=== PATIENT | female | born 1955 | race Caucasian/White ===

== ENCOUNTER 2021-06-10 00:20 | Inpatient (IN) | payer OTHER, BC, SELFPAY ==
[~2021-06-10] VITALS: Ht 182.9 cm; Wt 102.1 kg
[2021-06-10 00:29] VITALS: BP_SYST 148
[2021-06-10] MEDS ORDERED: HYDROmorphone 2 MG/ML VIAL IVP PRN (01:00)
[2021-06-10] MEDS ORDERED: ONDANSETRON HCL 4 MG/2 ML VIAL IVP PRN (01:00)
[2021-06-10] MEDS ORDERED: VANCOMYCIN HCL 1,000 MG in NS 250 ML IV SCH (01:00)
[2021-06-10] MEDS ORDERED: DONE10TA44 PO (01:05)
[2021-06-10] MEDS ORDERED: [UNRECOGNIZED DRUG - CODE] MM (01:05)
[2021-06-10] MEDS ORDERED: CILO100T PO (01:05)
[2021-06-10] MEDS ORDERED: OSCD500 PO (01:05)
[2021-06-10] MEDS ORDERED: ALLO100T PO (01:05)
[2021-06-10] MEDS ORDERED: DICY10SO PO (01:05)
[2021-06-10] MEDS ORDERED: CAT3PAT TD (01:05)
[2021-06-10] MEDS ORDERED: LORA-258 PO (01:05)
[2021-06-10] MEDS ORDERED: LORA-259 PO (01:05)
[2021-06-10] MEDS ORDERED: BISA-79 PO (01:05)
[2021-06-10] MEDS ORDERED: DOCU-144 PO (01:05)
[2021-06-10] MEDS ORDERED: BEN50 PO (01:05)
[2021-06-10] MEDS ORDERED: CRAN450T9 PO (01:05)
[2021-06-10] MEDS ORDERED: HYDR2TAB4 PO (01:05)
[2021-06-10] MEDS ORDERED: [UNRECOGNIZED DRUG - OTHER] (01:05)
[2021-06-10] MEDS ORDERED: FLUO120C4 TP (01:30)
[2021-06-10] MEDS ORDERED: EZET1TAB22 PO (01:30)
[2021-06-10] MEDS ORDERED: NORT50CA5 PO (01:39)
[2021-06-10] MEDS ORDERED: LOPE2CAP PO (01:39)
[2021-06-10] MEDS ORDERED: SSREG SUBCUT (01:39)
[2021-06-10] MEDS ORDERED: MELA10TA PO (01:39)
[2021-06-10] MEDS ORDERED: ASM110 INH (01:39)
[2021-06-10] MEDS ORDERED: LISI10TA29 PO (01:39)
[2021-06-10] MEDS ORDERED: NAFT45CR2 TP (01:39)
[2021-06-10] MEDS ORDERED: PREG75CA PO (01:39)
[2021-06-10] MEDS ORDERED: INSU100V9 SQ (01:39)
[2021-06-10] MEDS ORDERED: PHEN100O4 PO (01:39)
[2021-06-10] MEDS ORDERED: HYDR12.55 (01:39)
[2021-06-10] MEDS ORDERED: LEVO125T8 PO (01:39)
[2021-06-10] MEDS ORDERED: PRO20 PO (01:48)
[2021-06-10] MEDS ORDERED: CLOP75TA32 PO (01:48)
[2021-06-10] MEDS ORDERED: POTA20TA83 PO (01:48)
[2021-06-10] MEDS ORDERED: ALBMDI INH (01:48)
[2021-06-10] MEDS ORDERED: TRAZ300T2 PO (01:48)
[2021-06-10] MEDS ORDERED: LORazepam 2 MG/ML VIAL IM ONE ×3 (02:00→06:45)
[2021-06-10] MEDS ORDERED: MORPHINE 4 MG INJ. 4 MG/ML VIAL IM ONE ×3 (02:00→06:45)
[2021-06-10] MEDS ORDERED: LIDOCAINE 1%, 20 ML MDV 20 ML ONE ×2 (02:52→06:03)
[2021-06-10] MEDS ORDERED: MORPHINE 4 MG INJ. 4 MG/ML VIAL ONE (03:06)
[2021-06-10] MEDS ORDERED: LORazepam 2 MG/ML VIAL ONE (03:07)
[2021-06-10] MEDS ORDERED: HYDROmorphone 2 MG/ML VIAL IM PRN (08:30)
[2021-06-10 10:25] VITALS: BP_SYST 146
[2021-06-10 11:36] LABS: BASOPHILS # (AUTO) 0.1 K/uL (0.0-0.2); BASOPHILS % (AUTO) 1.1 % (0.0-2.0); EOSINOPHILS # (AUTO) 0.1 K/uL (0.0-0.4); EOSINOPHILS % (AUTO) 1.2 % (0.0-4.0); HEMATOCRIT 37.1 % (36-48); HEMOGLOBIN 12.8 g/dL (12.0-16.0); LYMPHOCYTES # (AUTO) 1.9 K/uL (1.0-5.5); LYMPHOCYTES % (AUTO) 17.5 % (20.5-51.5); MEAN CORPUSCULAR HEMOGLOBIN 33 pg (27-31); MEAN CORPUSCULAR HGB CONC 35 % (32-36); MEAN CORPUSCULAR VOLUME 96 fL (79.0-98.0); MONOCYTES # (AUTO) 0.4 K/uL (0.0-1.0); MONOCYTES % (AUTO) 3.6 % (1.7-9.3); NEUTROPHILS # (AUTO) 8.4 K/uL (1.8-7.7); NEUTROPHILS % (AUTO) 76.6 % (40.0-70.0); PLATELET COUNT (AUTO) 209 K/uL (130-430); RED BLOOD CELL COUNT(AUTO) 3.85 MIL/uL (4.2-6.2); RED CELL DISTRIBUTION WIDTH 13.6 % (9.0-15.0)
[2021-06-10 12:16] LABS: CALCIUM 9.1 mg/dL (8.4-11.0); CREATININE 0.63 mg/dL (0.55-1.30); POTASSIUM 4.4 mmol/L (3.5-5.1)
[2021-06-10 12:21] LABS: ALBUMIN 3.5 g/dL (3.4-4.8); TOTAL BILIRUBIN 0.5 mg/dL (0.0-1.0)
[2021-06-10 12:38] VITALS: BP_SYST 153
[2021-06-10] MEDS: HYDROmorphone 2 MG/ML VIAL IM PRN ×4 (12:45→21:42)
[2021-06-10] MEDS: ONDANSETRON 4 MG ODT TAB PO PRN (15:39)
[2021-06-10] MEDS ORDERED: HEPARIN SODIUM,PORCINE 5,000 UNITS/ML VIAL MC ONE (16:00)
[2021-06-10 16:29] VITALS: BP_SYST 145
[2021-06-10] MEDS: LORazepam 1 MG TABLET PO PRN ×2 (17:11→23:54)
[2021-06-10] MEDS: ACETAMINOPHEN 325 MG TABLET PO PRN ×2 (17:11→23:54)
[2021-06-10] MEDS: VANCOMYCIN HCL 1,000 MG in NS 250 ML IV SCH (18:00)
[2021-06-10] MEDS: DIPHENHYDRAMINE HCL 25 MG CAPSULE PO PRN (18:38)
[2021-06-10] MEDS: PHENYTOIN 100 MG/4 ML UDC (DILANTIN) PO SCH ×2 (21:00→21:48)
[2021-06-10] MEDS: PREGABALIN 75 MG CAPSULE (LYRICA) PO SCH (21:48)
[2021-06-10] MEDS: DONEPEZIL HCL 5 MG TABLET (ARICEPT) PO SCH (21:48)
[2021-06-10] MEDS: NORTRIPTYLINE HCL 25 MG CAPSULE PO SCH (21:48)
[2021-06-10] MEDS: traZODone HCL 50 MG TABLET (DESYREL) PO SCH (21:49)
[2021-06-10] MEDS: INSULIN GLARGINE 100 UNITS/ML 10 ML VIAL SQ SCH (22:34)
[2021-06-10 22:58] VITALS: BP_SYST 132
[2021-06-11] MEDS: HYDROmorphone 2 MG/ML VIAL IM PRN ×8 (00:48→22:10)
[2021-06-11] MEDS: DIPHENHYDRAMINE HCL 25 MG CAPSULE PO PRN ×2 (00:53→12:50)
[2021-06-11 01:01] VITALS: BP_SYST 141
[2021-06-11] MEDS: VANCOMYCIN HCL 1,000 MG in NS 250 ML IV SCH ×2 (06:00→17:49)
[2021-06-11] MEDS: LORazepam 1 MG TABLET PO PRN ×3 (06:50→21:13)
[2021-06-11] MEDS: ACETAMINOPHEN 325 MG TABLET PO PRN ×2 (06:50→14:55)
[2021-06-11] MEDS: LEVOTHYROXINE SODIUM 0.125 MG TABLET PO SCH (06:50)
[2021-06-11 06:54] LABS: BASOPHILS # (AUTO) 0.1 K/uL (0.0-0.2); BASOPHILS % (AUTO) 1.1 % (0.0-2.0); EOSINOPHILS # (AUTO) 0.2 K/uL (0.0-0.4); EOSINOPHILS % (AUTO) 2.5 % (0.0-4.0); HEMATOCRIT 37.8 % (36-48); HEMOGLOBIN 13.4 g/dL (12.0-16.0); LYMPHOCYTES # (AUTO) 2.8 K/uL (1.0-5.5); LYMPHOCYTES % (AUTO) 29.8 % (20.5-51.5); MEAN CORPUSCULAR HEMOGLOBIN 35 pg (27-31); MEAN CORPUSCULAR HGB CONC 35 % (32-36); MEAN CORPUSCULAR VOLUME 98 fL (79.0-98.0); MONOCYTES # (AUTO) 0.4 K/uL (0.0-1.0); MONOCYTES % (AUTO) 4.5 % (1.7-9.3); NEUTROPHILS # (AUTO) 5.9 K/uL (1.8-7.7); NEUTROPHILS % (AUTO) 62.1 % (40.0-70.0); PLATELET COUNT (AUTO) 201 K/uL (130-430); RED BLOOD CELL COUNT(AUTO) 3.85 MIL/uL (4.2-6.2); RED CELL DISTRIBUTION WIDTH 13.8 % (9.0-15.0); WHITE BLOOD COUNT (AUTO) 9.5 K/uL (4.8-10.8)
[2021-06-11 07:45] LABS: CREATININE 0.55 mg/dL (0.55-1.30); POTASSIUM 4.3 mmol/L (3.5-5.1)
[2021-06-11 08:00] VITALS: BP_SYST 115
[2021-06-11] MEDS: PHENYTOIN 100 MG/4 ML UDC (DILANTIN) PO SCH (08:33)
[2021-06-11] MEDS: CLOPIDOGREL BISULFATE 75 MG TABLET PO SCH (08:33)
[2021-06-11] MEDS: FLUoxetine HCL 20 MG CAPSULE (PROzac) PO SCH (08:34)
[2021-06-11] MEDS: LISINOPRIL 10 MG TABLET (PRINIVIL) PO SCH (08:38)
[2021-06-11] MEDS: PREGABALIN 75 MG CAPSULE (LYRICA) PO SCH ×2 (08:38→20:37)
[2021-06-11] MEDS: ALLOPURINOL 100 MG TABLET (ZYLOPRIM) PO SCH (08:38)
[2021-06-11] MEDS: INSULIN GLARGINE 100 UNITS/ML 10 ML VIAL SQ SCH ×3 (08:41→21:00)
[2021-06-11 12:03] VITALS: BP_SYST 139
[2021-06-11] MEDS: PHENYTOIN 100 MG CAPSULE PO SCH ×2 (14:51→20:38)
[2021-06-11 16:02] VITALS: BP_SYST 145
[2021-06-11 19:50] VITALS: BP_SYST 129
[2021-06-11] MEDS: traZODone HCL 50 MG TABLET (DESYREL) PO SCH (20:37)
[2021-06-11] MEDS: NORTRIPTYLINE HCL 25 MG CAPSULE PO SCH (20:37)
[2021-06-11] MEDS: DONEPEZIL HCL 5 MG TABLET (ARICEPT) PO SCH (20:38)
[2021-06-11] MEDS: INSULIN REGULAR, HUMAN 100 UNITS/ML, 10 ML VIAL (humuLIN R) SUBCUT PRN (21:16)
[2021-06-12 00:25] VITALS: BP_SYST 134
[2021-06-12] MEDS: HYDROmorphone 2 MG/ML VIAL IM PRN ×7 (02:28→21:06)
[2021-06-12] MEDS: DIPHENHYDRAMINE HCL 25 MG CAPSULE PO PRN ×2 (03:10→12:05)
[2021-06-12] MEDS: LORazepam 1 MG TABLET PO PRN ×3 (03:26→16:23)
[2021-06-12] MEDS: ACETAMINOPHEN 325 MG TABLET PO PRN ×2 (03:27→12:05)
[2021-06-12] MEDS: VANCOMYCIN HCL 1,000 MG in NS 250 ML IV SCH (05:28)
[2021-06-12] MEDS: LEVOTHYROXINE SODIUM 0.125 MG TABLET PO SCH (06:31)
[2021-06-12] MEDS ORDERED: DEXTROSE 50%-WATER 50 ML DISP.SYRIN IVP PRN (07:15)
[2021-06-12] MEDS ORDERED: GLUCOSE (DEXTROSE) ORAL GEL -Adults PO PRN (07:15)
[2021-06-12] MEDS ORDERED: D5W 1,000 ML IV PRN (07:15)
[2021-06-12 07:57] VITALS: BP_SYST 121
[2021-06-12] MEDS: CLOPIDOGREL BISULFATE 75 MG TABLET PO SCH (08:57)
[2021-06-12] MEDS: PHENYTOIN 100 MG CAPSULE PO SCH ×3 (08:57→21:09)
[2021-06-12] MEDS: LISINOPRIL 10 MG TABLET (PRINIVIL) PO SCH (08:58)
[2021-06-12] MEDS: FLUoxetine HCL 20 MG CAPSULE (PROzac) PO SCH (08:58)
[2021-06-12] MEDS: PREGABALIN 75 MG CAPSULE (LYRICA) PO SCH ×2 (08:58→21:09)
[2021-06-12] MEDS: ALLOPURINOL 100 MG TABLET (ZYLOPRIM) PO SCH (08:58)
[2021-06-12] MEDS: INSULIN GLARGINE 100 UNITS/ML 10 ML VIAL SQ SCH ×2 (09:08→21:07)
[2021-06-12] MEDS ORDERED: LINEZOLID 600 MG TABLET PO ONE (11:15)
[2021-06-12] MEDS: INSULIN REGULAR, HUMAN 100 UNITS/ML, 10 ML VIAL (humuLIN R) SUBCUT PRN ×2 (12:17→17:57)
[2021-06-12 16:00] VITALS: BP_SYST 114
[2021-06-12 21:00] VITALS: BP_SYST 153
[2021-06-12] MEDS: traZODone HCL 50 MG TABLET (DESYREL) PO SCH (21:09)
[2021-06-12] MEDS: DONEPEZIL HCL 5 MG TABLET (ARICEPT) PO SCH (21:09)
[2021-06-12] MEDS: LINEZOLID 600 MG TABLET PO SCH (21:10)
[2021-06-12] MEDS: NORTRIPTYLINE HCL 25 MG CAPSULE PO SCH (21:26)
[2021-06-13] MEDS: HYDROmorphone 2 MG/ML VIAL IM PRN (00:13)
[2021-06-13] MEDS: LORazepam 1 MG TABLET PO PRN ×5 (00:14→21:32)
[2021-06-13 01:00] VITALS: BP_SYST 141
[2021-06-13] MEDS: MELATONIN 5 MG TABLET PO PRN (01:07)
[2021-06-13] MEDS: HYDROmorphone 2 MG/ML VIAL IVP PRN ×7 (03:08→21:11)
[2021-06-13] MEDS: ACETAMINOPHEN 325 MG TABLET PO PRN ×2 (03:10→18:01)
[2021-06-13] MEDS: LEVOTHYROXINE SODIUM 0.125 MG TABLET PO SCH (06:52)
[2021-06-13] MEDS: CLOPIDOGREL BISULFATE 75 MG TABLET PO SCH (08:56)
[2021-06-13] MEDS: PHENYTOIN 100 MG CAPSULE PO SCH ×3 (08:56→21:32)
[2021-06-13] MEDS: CALCIUM CARBONATE 500 MG/ TAB.CHEW PO PRN (08:57)
[2021-06-13] MEDS: PREGABALIN 75 MG CAPSULE (LYRICA) PO SCH ×2 (08:57→21:14)
[2021-06-13] MEDS: FLUoxetine HCL 20 MG CAPSULE (PROzac) PO SCH (08:57)
[2021-06-13] MEDS: ALLOPURINOL 100 MG TABLET (ZYLOPRIM) PO SCH (08:58)
[2021-06-13] MEDS: LINEZOLID 600 MG TABLET PO SCH ×3 (08:58→21:14)
[2021-06-13] MEDS: LISINOPRIL 10 MG TABLET (PRINIVIL) PO SCH (08:59)
[2021-06-13] MEDS: INSULIN GLARGINE 100 UNITS/ML 10 ML VIAL SQ SCH ×2 (09:03→21:00)
[2021-06-13 09:45] VITALS: BP_SYST 150
[2021-06-13] MEDS: INSULIN REGULAR, HUMAN 100 UNITS/ML, 10 ML VIAL (humuLIN R) SUBCUT PRN ×3 (10:43→22:04)
[2021-06-13 13:54] VITALS: BP_SYST 126
[2021-06-13 17:03] VITALS: BP_SYST 147
[2021-06-13] MEDS: DIPHENHYDRAMINE HCL 25 MG CAPSULE PO PRN (18:01)
[2021-06-13] MEDS: DONEPEZIL HCL 5 MG TABLET (ARICEPT) PO SCH (21:14)
[2021-06-13] MEDS: traZODone HCL 50 MG TABLET (DESYREL) PO SCH (21:14)
[2021-06-13] MEDS: NORTRIPTYLINE HCL 25 MG CAPSULE PO SCH (21:32)
[2021-06-13] MEDS ORDERED: LINEZOLID 300 ML IV ONE (23:24)
[2021-06-13] MEDS: LINEZOLID 300 ML IV SCH (23:44)
[2021-06-14] MEDS: HYDROmorphone 2 MG/ML VIAL IVP PRN ×8 (00:18→21:14)
[2021-06-14 00:35] VITALS: BP_SYST 123
[2021-06-14] MEDS: DIPHENHYDRAMINE HCL 25 MG CAPSULE PO PRN ×2 (00:37→18:04)
[2021-06-14] MEDS: ACETAMINOPHEN 325 MG TABLET PO PRN ×3 (00:38→18:04)
[2021-06-14] MEDS: LORazepam 1 MG TABLET PO PRN ×3 (03:21→15:39)
[2021-06-14] MEDS: LEVOTHYROXINE SODIUM 0.125 MG TABLET PO SCH (06:17)
[2021-06-14 08:00] VITALS: BP_SYST 140
[2021-06-14] MEDS: LINEZOLID 300 ML IV SCH ×2 (08:58→21:10)
[2021-06-14] MEDS: ALLOPURINOL 100 MG TABLET (ZYLOPRIM) PO SCH (08:59)
[2021-06-14] MEDS: FLUoxetine HCL 20 MG CAPSULE (PROzac) PO SCH (08:59)
[2021-06-14] MEDS: PHENYTOIN 100 MG CAPSULE PO SCH ×3 (08:59→21:11)
[2021-06-14] MEDS: PREGABALIN 75 MG CAPSULE (LYRICA) PO SCH ×2 (08:59→21:12)
[2021-06-14] MEDS: LISINOPRIL 10 MG TABLET (PRINIVIL) PO SCH (09:00)
[2021-06-14] MEDS: CLOPIDOGREL BISULFATE 75 MG TABLET PO SCH (09:00)
[2021-06-14] MEDS: INSULIN GLARGINE 100 UNITS/ML 10 ML VIAL SQ SCH ×2 (09:13→21:26)
[2021-06-14 12:00] VITALS: BP_SYST 129
[2021-06-14] MEDS: INSULIN REGULAR, HUMAN 100 UNITS/ML, 10 ML VIAL (humuLIN R) SUBCUT PRN ×3 (12:37→21:31)
[2021-06-14 16:14] VITALS: BP_SYST 119
[2021-06-14 17:01] LABS: BASOPHILS # (AUTO) 0.1 K/uL (0.0-0.2); BASOPHILS % (AUTO) 0.9 % (0.0-2.0); EOSINOPHILS # (AUTO) 0.4 K/uL (0.0-0.4); EOSINOPHILS % (AUTO) 3.8 % (0.0-4.0); HEMATOCRIT 37.4 % (36-48); LYMPHOCYTES # (AUTO) 2.6 K/uL (1.0-5.5); LYMPHOCYTES % (AUTO) 25.3 % (20.5-51.5); MEAN CORPUSCULAR HEMOGLOBIN 34 pg (27-31); MEAN CORPUSCULAR HGB CONC 35 % (32-36); MEAN CORPUSCULAR VOLUME 97 fL (79.0-98.0); MONOCYTES # (AUTO) 0.4 K/uL (0.0-1.0); NEUTROPHILS # (AUTO) 6.9 K/uL (1.8-7.7); PLATELET COUNT (AUTO) 237 K/uL (130-430); RED BLOOD CELL COUNT(AUTO) 3.87 MIL/uL (4.2-6.2); RED CELL DISTRIBUTION WIDTH 13.5 % (9.0-15.0); WHITE BLOOD COUNT (AUTO) 10.4 K/uL (4.8-10.8)
[2021-06-14] MEDS ORDERED: INSULIN REGULAR, HUMAN 100 UNITS/ML, 10 ML VIAL (humuLIN R) SUBCUT PRN (18:15)
[2021-06-14] MEDS ORDERED: DOCUSATE SODIUM 100 MG CAPSULE PO ONE (18:30)
[2021-06-14 20:00] VITALS: BP_SYST 135
[2021-06-14] MEDS: DONEPEZIL HCL 5 MG TABLET (ARICEPT) PO SCH (21:10)
[2021-06-14] MEDS: POTASSIUM CHLORIDE 8 MEQ TABLET.SA PO SCH (21:11)
[2021-06-14] MEDS: traZODone HCL 50 MG TABLET (DESYREL) PO SCH (21:11)
[2021-06-14] MEDS: NORTRIPTYLINE HCL 25 MG CAPSULE PO SCH (21:12)
[2021-06-15] MEDS: HYDROmorphone 2 MG/ML VIAL IVP PRN ×8 (01:26→23:11)
[2021-06-15] MEDS: LORazepam 1 MG TABLET PO PRN ×3 (01:30→16:44)
[2021-06-15] MEDS: DIPHENHYDRAMINE HCL 25 MG CAPSULE PO PRN ×4 (01:58→20:16)
[2021-06-15] MEDS: ACETAMINOPHEN 325 MG TABLET PO PRN ×3 (01:59→20:16)
[2021-06-15] MEDS: LOPERAMIDE HCL 2 MG CAPSULE PO SCH ×5 (06:00→23:29)
[2021-06-15] MEDS: LEVOTHYROXINE SODIUM 0.125 MG TABLET PO SCH (06:42)
[2021-06-15 08:00] VITALS: BP_SYST 145
[2021-06-15] MEDS: LINEZOLID 300 ML IV SCH ×4 (09:00→21:00)
[2021-06-15] MEDS: DOCUSATE SODIUM 100 MG CAPSULE PO SCH ×2 (09:00→09:04)
[2021-06-15] MEDS: LISINOPRIL 10 MG TABLET (PRINIVIL) PO SCH (09:03)
[2021-06-15] MEDS: FLUoxetine HCL 20 MG CAPSULE (PROzac) PO SCH (09:03)
[2021-06-15] MEDS: POTASSIUM CHLORIDE 8 MEQ TABLET.SA PO SCH ×3 (09:04→20:16)
[2021-06-15] MEDS: PREGABALIN 75 MG CAPSULE (LYRICA) PO SCH ×2 (09:04→20:17)
[2021-06-15] MEDS: PHENYTOIN 100 MG CAPSULE PO SCH ×3 (09:04→20:17)
[2021-06-15] MEDS: ALLOPURINOL 100 MG TABLET (ZYLOPRIM) PO SCH (09:04)
[2021-06-15] MEDS: CLOPIDOGREL BISULFATE 75 MG TABLET PO SCH (09:04)
[2021-06-15] MEDS: INSULIN GLARGINE 100 UNITS/ML 10 ML VIAL SQ SCH ×2 (09:13→20:23)
[2021-06-15] MEDS ORDERED: PANTOPRAZOLE SODIUM 40 MG/VIAL (PROTONIX) IVP ONE (11:00)
[2021-06-15] MEDS: SIMETHICONE 80 MG TAB.CHEW PO SCH ×3 (11:42→20:17)
[2021-06-15] MEDS: DICYCLOMINE HCL 10 MG/5 ML SOLUTION PO SCH ×3 (11:48→21:00)
[2021-06-15 12:00] VITALS: BP_SYST 140
[2021-06-15] MEDS ORDERED: LINE600T12 IVPB (15:58)
[2021-06-15 16:00] VITALS: BP_SYST 142
[2021-06-15] MEDS: ONDANSETRON 4 MG ODT TAB PO PRN ×2 (16:33→23:11)
[2021-06-15] MEDS: INSULIN REGULAR, HUMAN 100 UNITS/ML, 10 ML VIAL (humuLIN R) SUBCUT PRN (16:48)
[2021-06-15] MEDS ORDERED: LORazepam 1 MG TABLET PO ONE (17:00)
[2021-06-15 20:00] VITALS: BP_SYST 141
[2021-06-15] MEDS: traZODone HCL 50 MG TABLET (DESYREL) PO SCH (20:16)
[2021-06-15] MEDS: DONEPEZIL HCL 5 MG TABLET (ARICEPT) PO SCH (20:17)
[2021-06-15] MEDS: NORTRIPTYLINE HCL 25 MG CAPSULE PO SCH (20:24)
[2021-06-15] MEDS: PANTOPRAZOLE SODIUM 40 MG/VIAL (PROTONIX) IVP SCH (22:27)
[2021-06-16] VITALS: BP_SYST 135
[2021-06-16] MEDS: LORazepam 1 MG TABLET PO PRN ×4 (00:04→21:45)
[2021-06-16] MEDS: MELATONIN 5 MG TABLET PO PRN (00:59)
[2021-06-16] MEDS: HYDROmorphone 2 MG/ML VIAL IVP PRN ×5 (02:07→23:13)
[2021-06-16] MEDS: LOPERAMIDE HCL 2 MG CAPSULE PO SCH ×3 (05:02→18:00)
[2021-06-16] MEDS: DIPHENHYDRAMINE HCL 25 MG CAPSULE PO PRN ×3 (05:06→21:24)
[2021-06-16] MEDS: ACETAMINOPHEN 325 MG TABLET PO PRN ×3 (05:10→23:16)
[2021-06-16] MEDS: LEVOTHYROXINE SODIUM 0.125 MG TABLET PO SCH (05:56)
[2021-06-16] MEDS: PANTOPRAZOLE SODIUM 40 MG/VIAL (PROTONIX) IVP SCH ×3 (09:00→21:04)
[2021-06-16] MEDS: LINEZOLID 300 ML IV SCH ×3 (09:00→21:00)
[2021-06-16] MEDS ORDERED: cloNIDine HCL 0.3 MG/24 HR PATCH.TDWK TD SCH (09:00)
[2021-06-16] MEDS: DOCUSATE SODIUM 100 MG CAPSULE PO SCH (09:00)
[2021-06-16] MEDS: FLUoxetine HCL 20 MG CAPSULE (PROzac) PO SCH (09:10)
[2021-06-16] MEDS: ALLOPURINOL 100 MG TABLET (ZYLOPRIM) PO SCH (09:11)
[2021-06-16] MEDS: SIMETHICONE 80 MG TAB.CHEW PO SCH ×4 (09:12→21:03)
[2021-06-16] MEDS: PREGABALIN 75 MG CAPSULE (LYRICA) PO SCH ×2 (09:12→21:04)
[2021-06-16] MEDS: POTASSIUM CHLORIDE 8 MEQ TABLET.SA PO SCH ×3 (09:12→21:03)
[2021-06-16] MEDS: CLOPIDOGREL BISULFATE 75 MG TABLET PO SCH (09:13)
[2021-06-16] MEDS: LISINOPRIL 10 MG TABLET (PRINIVIL) PO SCH (09:13)
[2021-06-16] MEDS: PHENYTOIN 100 MG CAPSULE PO SCH ×3 (09:13→21:04)
[2021-06-16] MEDS: INSULIN GLARGINE 100 UNITS/ML 10 ML VIAL SQ SCH ×2 (09:14→21:19)
[2021-06-16] MEDS: DICYCLOMINE HCL 10 MG/5 ML SOLUTION PO SCH ×4 (09:15→21:00)
[2021-06-16] MEDS ORDERED: PANTOPRAZOLE SODIUM 40 MG TAB PO ONE (11:00)
[2021-06-16] MEDS: HYDROmorphone 2 MG/ML VIAL IM PRN ×3 (11:24→17:27)
[2021-06-16 12:00] VITALS: BP_SYST 130
[2021-06-16] MEDS: INSULIN REGULAR, HUMAN 100 UNITS/ML, 10 ML VIAL (humuLIN R) SUBCUT PRN ×2 (12:30→21:19)
[2021-06-16 16:23] VITALS: BP_SYST 132
[2021-06-16 20:00] VITALS: BP_SYST 138
[2021-06-16] MEDS: traZODone HCL 50 MG TABLET (DESYREL) PO SCH (21:03)
[2021-06-16] MEDS: NORTRIPTYLINE HCL 25 MG CAPSULE PO SCH (21:04)
[2021-06-16] MEDS: DONEPEZIL HCL 5 MG TABLET (ARICEPT) PO SCH (21:08)
[2021-06-17] VITALS: BP_SYST 166
[2021-06-17] MEDS: HYDROmorphone 2 MG/ML VIAL IVP PRN ×8 (02:29→23:38)
[2021-06-17] MEDS: LORazepam 1 MG TABLET PO PRN ×3 (04:38→18:09)
[2021-06-17] MEDS: LOPERAMIDE HCL 2 MG CAPSULE PO SCH ×5 (04:39→23:39)
[2021-06-17] MEDS: LEVOTHYROXINE SODIUM 0.125 MG TABLET PO SCH (05:28)
[2021-06-17] MEDS: PANTOPRAZOLE SODIUM 40 MG/VIAL (PROTONIX) IVP SCH ×2 (08:27→20:40)
[2021-06-17] MEDS: FLUoxetine HCL 20 MG CAPSULE (PROzac) PO SCH (08:28)
[2021-06-17] MEDS: CLOPIDOGREL BISULFATE 75 MG TABLET PO SCH (08:28)
[2021-06-17] MEDS: SIMETHICONE 80 MG TAB.CHEW PO SCH ×4 (08:28→20:49)
[2021-06-17] MEDS: CALCIUM CARBONATE 500 MG/ TAB.CHEW PO PRN (08:28)
[2021-06-17] MEDS: PHENYTOIN 100 MG CAPSULE PO SCH ×3 (08:28→20:49)
[2021-06-17] MEDS: PREGABALIN 75 MG CAPSULE (LYRICA) PO SCH ×2 (08:28→20:49)
[2021-06-17] MEDS: ALLOPURINOL 100 MG TABLET (ZYLOPRIM) PO SCH (08:28)
[2021-06-17] MEDS: LISINOPRIL 10 MG TABLET (PRINIVIL) PO SCH (08:29)
[2021-06-17] MEDS: POTASSIUM CHLORIDE 8 MEQ TABLET.SA PO SCH ×3 (08:29→20:49)
[2021-06-17 08:30] VITALS: BP_SYST 130
[2021-06-17] MEDS: DOCUSATE SODIUM 100 MG CAPSULE PO SCH (08:36)
[2021-06-17] MEDS: LINEZOLID 300 ML IV SCH ×2 (08:37→21:00)
[2021-06-17] MEDS: INSULIN GLARGINE 100 UNITS/ML 10 ML VIAL SQ SCH ×2 (08:47→21:00)
[2021-06-17] MEDS ORDERED: PANTOPRAZOLE SODIUM 40 MG TAB PO SCH (09:00)
[2021-06-17] MEDS ORDERED: DIATR MEGLU/DIATRIZ SOD 30 ML SOLUTION PO ONE (09:27)
[2021-06-17] MEDS: INSULIN REGULAR, HUMAN 100 UNITS/ML, 10 ML VIAL (humuLIN R) SUBCUT PRN ×3 (11:21→20:58)
[2021-06-17 11:27] VITALS: BP_SYST 141
[2021-06-17] MEDS: DICYCLOMINE HCL 10 MG CAPSULE PO SCH ×3 (12:51→20:49)
[2021-06-17] MEDS: ACETAMINOPHEN 325 MG TABLET PO PRN (14:23)
[2021-06-17] MEDS: DIPHENHYDRAMINE HCL 25 MG CAPSULE PO PRN (14:26)
[2021-06-17 16:22] VITALS: BP_SYST 147
[2021-06-17 16:59] VITALS: BP_SYST 120
[2021-06-17 19:30] VITALS: BP_SYST 141
[2021-06-17] MEDS: traZODone HCL 50 MG TABLET (DESYREL) PO SCH (20:48)
[2021-06-17] MEDS: DONEPEZIL HCL 5 MG TABLET (ARICEPT) PO SCH (20:49)
[2021-06-17] MEDS: NORTRIPTYLINE HCL 25 MG CAPSULE PO SCH (21:00)
[2021-06-18] VITALS: BP_SYST 135
[2021-06-18] MEDS: LORazepam 1 MG TABLET PO PRN ×6 (00:25→21:56)
[2021-06-18 00:58] VITALS: BP_SYST 95
[2021-06-18] MEDS: HYDROmorphone 2 MG/ML VIAL IVP PRN ×4 (03:05→12:16)
[2021-06-18] MEDS: LOPERAMIDE HCL 2 MG CAPSULE PO SCH ×3 (05:12→17:43)
[2021-06-18] MEDS: LEVOTHYROXINE SODIUM 0.125 MG TABLET PO SCH (05:58)
[2021-06-18] MEDS: INSULIN REGULAR, HUMAN 100 UNITS/ML, 10 ML VIAL (humuLIN R) SUBCUT PRN ×2 (06:14→12:26)
[2021-06-18 08:00] VITALS: BP_SYST 139
[2021-06-18] MEDS: LINEZOLID 300 ML IV SCH ×2 (09:00→21:00)
[2021-06-18] MEDS: DOCUSATE SODIUM 100 MG CAPSULE PO SCH (09:00)
[2021-06-18] MEDS ORDERED: POLYETHYLENE GLYCOL 3350, 17 GM/ POWD.PACK PO ONE (10:15)
[2021-06-18] MEDS: PANTOPRAZOLE SODIUM 40 MG/VIAL (PROTONIX) IVP SCH ×2 (10:20→21:00)
[2021-06-18] MEDS: ALLOPURINOL 100 MG TABLET (ZYLOPRIM) PO SCH (10:21)
[2021-06-18] MEDS: PREGABALIN 75 MG CAPSULE (LYRICA) PO SCH ×2 (10:21→21:00)
[2021-06-18] MEDS: SIMETHICONE 80 MG TAB.CHEW PO SCH ×4 (10:21→21:00)
[2021-06-18] MEDS: CLOPIDOGREL BISULFATE 75 MG TABLET PO SCH (10:22)
[2021-06-18] MEDS: LISINOPRIL 10 MG TABLET (PRINIVIL) PO SCH (10:22)
[2021-06-18] MEDS: PHENYTOIN 100 MG CAPSULE PO SCH ×3 (10:22→21:00)
[2021-06-18] MEDS: FLUoxetine HCL 20 MG CAPSULE (PROzac) PO SCH (10:23)
[2021-06-18] MEDS: DICYCLOMINE HCL 10 MG CAPSULE PO SCH ×4 (10:23→21:00)
[2021-06-18] MEDS: POTASSIUM CHLORIDE 8 MEQ TABLET.SA PO SCH ×3 (10:24→21:00)
[2021-06-18] MEDS: INSULIN GLARGINE 100 UNITS/ML 10 ML VIAL SQ SCH ×2 (10:36→21:00)
[2021-06-18 12:14] VITALS: BP_SYST 140
[2021-06-18] MEDS: ACETAMINOPHEN 325 MG TABLET PO PRN (12:28)
[2021-06-18] MEDS: HYDROmorphone 2 MG TAB PO PRN ×2 (15:33→21:48)
[2021-06-18] MEDS: NORTRIPTYLINE HCL 25 MG CAPSULE PO SCH (21:00)
[2021-06-18] MEDS: DONEPEZIL HCL 5 MG TABLET (ARICEPT) PO SCH (21:00)
[2021-06-18] MEDS: traZODone HCL 50 MG TABLET (DESYREL) PO SCH (21:56)
[2021-06-19] MEDS: HYDROmorphone 2 MG TAB PO PRN ×5 (00:15→13:24)
[2021-06-19] MEDS: LOPERAMIDE HCL 2 MG CAPSULE PO SCH ×5 (00:16→17:09)
[2021-06-19] MEDS: LORazepam 1 MG TABLET PO PRN ×3 (01:19→17:02)
[2021-06-19] MEDS: LEVOTHYROXINE SODIUM 0.125 MG TABLET PO SCH ×2 (05:03→05:40)
[2021-06-19] MEDS: DIPHENHYDRAMINE HCL 25 MG CAPSULE PO PRN (05:40)
[2021-06-19] MEDS: ACETAMINOPHEN 325 MG TABLET PO PRN ×2 (05:41→13:06)
[2021-06-19] MEDS: SIMETHICONE 80 MG TAB.CHEW PO SCH ×3 (09:00→17:01)
[2021-06-19] MEDS: DOCUSATE SODIUM 100 MG CAPSULE PO SCH (09:00)
[2021-06-19] MEDS: POTASSIUM CHLORIDE 8 MEQ TABLET.SA PO SCH ×2 (09:00→17:01)
[2021-06-19] MEDS: INSULIN GLARGINE 100 UNITS/ML 10 ML VIAL SQ SCH (09:00)
[2021-06-19] MEDS: LINEZOLID 300 ML IV SCH (09:00)
[2021-06-19] MEDS: PREGABALIN 75 MG CAPSULE (LYRICA) PO SCH (09:00)
[2021-06-19] MEDS ORDERED: POLYETHYLENE GLYCOL 3350, 17 GM/ POWD.PACK PO SCH (09:00)
[2021-06-19] MEDS: PHENYTOIN 100 MG CAPSULE PO SCH ×2 (09:00→17:01)
[2021-06-19] MEDS: LISINOPRIL 10 MG TABLET (PRINIVIL) PO SCH (09:00)
[2021-06-19] MEDS: PANTOPRAZOLE SODIUM 40 MG/VIAL (PROTONIX) IVP SCH (09:40)
[2021-06-19] MEDS: ALLOPURINOL 100 MG TABLET (ZYLOPRIM) PO SCH (09:41)
[2021-06-19] MEDS: CLOPIDOGREL BISULFATE 75 MG TABLET PO SCH (09:41)
[2021-06-19] MEDS: FLUoxetine HCL 20 MG CAPSULE (PROzac) PO SCH (09:42)
[2021-06-19] MEDS: DICYCLOMINE HCL 10 MG CAPSULE PO SCH ×3 (09:43→17:01)
[2021-06-19] MEDS ORDERED: PANTOPRAZOLE SODIUM 40 MG/VIAL (PROTONIX) IVP ONE (13:00)
[2021-06-19] MEDS ORDERED: HYDROmorphone 2 MG/ML VIAL IVP ONE ×2 (13:30→16:45)
[2021-06-19 13:49] VITALS: BP_SYST 149
[2021-06-19 14:10] VITALS: BP_SYST 140
[2021-06-19] MEDS: ONDANSETRON 4 MG ODT TAB PO PRN (17:01)
[2021-06-19 17:40] VITALS: BP_SYST 140
== END 2021-06-19 19:30 | DRG 603 ==
LOC: SED 00:20 → SMU 00:57
PROVIDERS: ADMIT Internal Medicine; ATTEND Internal Medicine
DX: L03.116 Cellulitis of left lower limb (principal); I82.503 Chronic embolism and thrombosis of unspecified deep veins of lower extremity, bilateral; K50.90 Crohn's disease, unspecified, without complications; I13.0 Hypertensive heart and chronic kidney disease with heart failure and stage 1 through stage 4 chronic kidney disease, or unspecified chronic kidney disease; E11.51 Type 2 diabetes mellitus with diabetic peripheral angiopathy without gangrene; G40.909 Epilepsy, unspecified, not intractable, without status epilepticus; E03.9 Hypothyroidism, unspecified; M10.9 Gout, unspecified; J44.9 Chronic obstructive pulmonary disease, unspecified; M19.90 Unspecified osteoarthritis, unspecified site; J45.909 Unspecified asthma, uncomplicated; F31.9 Bipolar disorder, unspecified; F41.9 Anxiety disorder, unspecified; L03.115 Cellulitis of right lower limb; F43.10 Post-traumatic stress disorder, unspecified; G47.30 Sleep apnea, unspecified; G89.4 Chronic pain syndrome; Z20.822 Contact with and (suspected) exposure to COVID-19; E66.9 Obesity, unspecified; I50.9 Heart failure, unspecified; N18.9 Chronic kidney disease, unspecified; E11.22 Type 2 diabetes mellitus with diabetic chronic kidney disease; Z88.2 Allergy status to sulfonamides; Z88.8 Allergy status to other drugs, medicaments and biological substances; Z91.040 Latex allergy status; Z88.0 Allergy status to penicillin; Z91.013 Allergy to seafood; Z79.899 Other long term (current) drug therapy; Z79.4 Long term (current) use of insulin; Z79.01 Long term (current) use of anticoagulants; Z68.30 Body mass index [BMI] 30.0-30.9, adult; Z79.02 Long term (current) use of antithrombotics/antiplatelets
CPT/HCPCS: 36415; 71045; 72040-TC; 74160-TC; 76376; 80048; 80053; 80185; 82962; 82977; 83605; 85025; 87040-TC; 87081; 96372; 99285; C9113; J1170; J1815; J2001; J2020; J2060; J2270; J3370; J7050; Q0162; Q0163; Q9964; Q9967

== ENCOUNTER 2021-09-06 18:47 | Inpatient (IN) | payer OTHER, BC, SELFPAY ==
[~2021-09-06] VITALS: Ht 172.7 cm; Wt 81.6 kg
[~2021-09-06 18:47] MED LIST: ALBMDI INH; ALLO100T PO; ASM110 INH; BEN50 PO; BISA10SU61 RC; CALC500T87 PO; CAT3PAT TD; CILO100T PO; CLOP75TA32 PO; CRAN450T9 PO; DICY10SO PO; DOCU-144 PO; DONE10TA44 PO; EZET1TAB22 PO; FLUO120C4 TP; HYDR12.55; HYDR2TAB4 PO; INSU100V9 SQ; LEVO125T8 PO; LINE600T12 IVPB; LISI10TA29 PO; LORA-258 PO; LORA-259 PO; MELA10TA PO; NAFT45CR TP; NORT50CA5 PO; PHEN100O4 PO; POTA20TA83 PO; PREG75CA PO; PRO20 PO; SSREG SUBCUT; TRAZ300T2 PO; [UNRECOGNIZED DRUG - CODE] MM
[2021-09-06 18:57] VITALS: BP_SYST 135
--- NOTE | 2021-09-06 19:01 | NUR ---
Patient to ER bed 6 to gown for evaluation. Side rails up. Report given to Blossom ESPINOSA.
--- NOTE | 2021-09-06 19:31 | NUR ---
PATIENT AAOX4 BIB BLS FROM HOME C/O BILATERAL LOWER LEG PAIN WITH HX OF CHRONIC CELLULITIS. PATIENT STATED ALSO HAVING PAIN TO LEFT EAR. DENIES ANY DRAINAGE. STATED IS STARTED HAPPENING AFTER USING EAR DROPS. DENIES TAKING ANY ABT MEDICATION. VSS. CURRENTLY STATING 9/10 ON THE PAIN SCALE. PT ABLE TO AMBULATE TO BED SIDE COMMODE AND GURNEY WITHOUT ASSISTANCE. GAIT STEADY.
--- NOTE | 2021-09-06 19:45 | NUR ---
DR. MARTINEZ AT BEDSIDE FOR EVALUATION.
--- NOTE | 2021-09-06 20:36 | NUR ---
Blood for labwork drawn. Patient tolerated WELL.
[2021-09-06 21:14] LABS: BASOPHILS # (AUTO) 0.1 K/uL (0.0-0.2); BASOPHILS % (AUTO) 0.9 % (0.0-2.0); EOSINOPHILS # (AUTO) 0.1 K/uL (0.0-0.4); EOSINOPHILS % (AUTO) 0.5 % (0.0-4.0); HEMATOCRIT 36.5 % (36-48); HEMOGLOBIN 12.7 g/dL (12.0-16.0); LYMPHOCYTES # (AUTO) 2.7 K/uL (1.0-5.5); LYMPHOCYTES % (AUTO) 17.5 % (20.5-51.5); MEAN CORPUSCULAR HEMOGLOBIN 34 pg (27-31); MEAN CORPUSCULAR HGB CONC 35 % (32-36); MEAN CORPUSCULAR VOLUME 97 fL (79.0-98.0); MONOCYTES # (AUTO) 0.4 K/uL (0.0-1.0); MONOCYTES % (AUTO) 2.4 % (1.7-9.3); NEUTROPHILS # (AUTO) 12.4 K/uL (1.8-7.7); NEUTROPHILS % (AUTO) 78.7 % (40.0-70.0); PLATELET COUNT (AUTO) 239 K/uL (130-430); RED BLOOD CELL COUNT(AUTO) 3.74 MIL/uL (4.2-6.2); RED CELL DISTRIBUTION WIDTH 13.9 % (9.0-15.0); WHITE BLOOD COUNT (AUTO) 15.7 K/uL (4.8-10.8)
--- NOTE | 2021-09-06 21:30 | NUR ---
Patient resting quietly. No acute distress noted. Vital signs within normal range.
[2021-09-06 22:10] LABS: ANION GAP 10 (5-15); CALCIUM 9.5 mg/dL (8.4-11.0); CHLORIDE 94 mmol/L (98-107); CREATININE 0.67 mg/dL (0.55-1.30); GLUCOSE 252 mg/dL (70-99); POTASSIUM 4.4 mmol/L (3.5-5.1); SODIUM SERUM 129 mmol/L (136-145); UREA NITROGEN, BLOOD 9 mg/dL (8-21)
[2021-09-06 22:26] LABS: GFR AFRICAN AMERICAN 113 mL/min (>90)
--- NOTE | 2021-09-06 22:50 | NUR ---
PT RESTING. NO SIGNS OF DISTRESS AT THIS TIME.
--- NOTE | 2021-09-07 | NUR ---
PT AMBULATED TO BEDSIDE COMMODE WITHOUT DIFFICULTIES. PT YELLING AT STAFF AND VERBALLY AGGRESSIVE. MD TRIED TO TALK TO PT BUT WAS IGNORING MD.
--- NOTE | 2021-09-07 02:00 | NUR ---
Patient resting quietly. No acute distress noted. Vital signs within normal range.
--- NOTE | 2021-09-07 04:07 | NUR ---
Patient resting and sleeping quietly. No acute distress noted.
--- NOTE | 2021-09-07 06:00 | NUR ---
PT SLEEPING AND RESTING. VSS.
[2021-09-07] MEDS ORDERED: HYDROmorphone 1 MG/ML INJ. CARTRIDGE IVP PRN (06:45)
--- NOTE | 2021-09-07 06:45 | NUR ---
PT REFUSED TO HAVE PIV INSERTED. PT STATED "YOU CANT PUT AN IV IN ME. I TOLD THE NURSE LAST NIGHT NO ONE IS ABLE TO PUT IN AN IV, I NEED A CENTRAL LINE. CALL DR FLYNN. HE WILL TELL YOU I NEED A CENTRAL LINE. NO YOU CAN NOT PUT AN IV ON ME." MADE MD AWARE. N/O FOR PICC LINE INSERTION.
--- NOTE | 2021-09-07 06:50 | NUR ---
Patient will be admitted to care of [facility]. Admitted to MED SURG unit. PENDING ROOM ASSIGNMENT. Belongings list completed. Complete and up to date summary report printed. SBAR report to be given at bedside with opportunity for questions.
[2021-09-07] MEDS ORDERED: ONDANSETRON HCL 4 MG/2 ML VIAL ONE (06:56)
[2021-09-07] MEDS ORDERED: HYDROmorphone 1 MG/ML INJ. CARTRIDGE ONE (06:58)
[2021-09-07] MEDS ORDERED: FLEETMO RC (07:14)
--- NOTE | 2021-09-07 07:15 | NUR ---
Patient's code status is FULL CODE paperwork completed and placed in chart.
--- NOTE | 2021-09-07 07:15 | NUR ---
Medication reconciliation completed with information provided by HEATHER . Any prior medication reconciliation on file was reviewed and corrected.
--- NOTE | 2021-09-07 07:18 | NUR ---
REPORT GIVEN TO JESÚS AVITIA TO ASSUME ALL CARE OF PT.
--- NOTE | 2021-09-07 07:30 | NUR ---
Pt refused to have blood work drawn for labs.
--- NOTE | 2021-09-07 07:34 | NUR ---
Pt refused breakfast tray.
--- NOTE | 2021-09-07 08:05 | NUR ---
Pt resting in gurney on her side attached to monitor. Breathing is even and unlabored.Vital signs holding.
--- NOTE | 2021-09-07 08:08 | NUR ---
Called for a bed. Charge unavailable. Awaiting call back.
--- NOTE | 2021-09-07 08:41 | NUR ---
Spoke with Jenae charge nurse. Awaiting bed placement.
--- NOTE | 2021-09-07 08:43 | NUR ---
Transferred to room [facility]A [facility] accompanied by staff. ETA now.
--- NOTE | 2021-09-07 08:50 | NUR ---
ADMISSION: The patient, LOKI ATKINSON, 66 y/o, F admitted by JANINA FLYNN MD, was given written information regarding hospital policies, unit procedures and contact persons. Patient refuses to have inventory of belongings done.
--- NOTE | 2021-09-07 08:50 | NUR ---
CONSULTATION PAGED REASON FOR CONSULTATION:SEPSIS WAS CONSULT CALLED?Y PERSON WHO WAS NOTIFIED: REGINALDO CONSULTING PHYSICIAN:KJ SWANSON CUSTOMER GREETER SPECIALTY:INFECTIOUS DISEASE CUSTOMER GREETER PHONE NUMBER:[phone] REQUESTING PHYSICIAN:LENNY RICHEY
[2021-09-07] MEDS: VANCOMYCIN HCL 1,000 MG in NS 250 ML IV SCH (09:00)
[2021-09-07] MEDS ORDERED: HYDROmorphone 1 MG/ML INJ. CARTRIDGE IM PRN (10:15)
--- NOTE | 2021-09-07 10:15 | NUR ---
HIGH ALERT NOTE: Called Dr. Escalante back at identified within the medical roster to verify physician authenticity.
[2021-09-07] MEDS: PIPERACILLIN/TAZO 3.375/DEX-IS 50 ML IV SCH ×2 (12:00→18:00)
--- NOTE | 2021-09-07 12:07 | NUR ---
Patient refused Patient refused midline placement, provided education regarding importance, patient still refuses, prefers to have IJ placed. Will inform MD.
--- NOTE | 2021-09-07 12:21 | NUR ---
CONSULTATION PAGED REASON FOR CONSULTATION:iIJ PLACEMENT WAS CONSULT CALLED?Y PERSON WHO WAS NOTIFIED: PAUL DARLING CONSULTING PHYSICIAN:ROSENDO ONOFRE GRAPHIC DESIGN PROFESSOR SPECIALTY:SURGEON GRAPHIC DESIGN PROFESSOR PHONE NUMBER:[phone] REQUESTING PHYSICIAN:JANINA RICHEY
[2021-09-07 13:09] VITALS: BP_SYST 148
--- NOTE | 2021-09-07 14:07 | NUR ---
Patient refused Patient is refusing all care until MD orders requested pain medication. Patient refused IJ placement and wound care, until she receives the desired dose of Dilaudid and Ativan. Will inform MD. Addendum: 09/07/21 at 1412 by Fany Raman RN Spoke with Dr. Escalante regarding patient medication requests. New orders received and placed.
[2021-09-07] MEDS: HYDROmorphone 2 MG/ML VIAL IM PRN ×3 (14:31→21:33)
--- NOTE | 2021-09-07 14:37 | NUR ---
Nutrition Update : Tevin Scale: 14 noted Pt admitted for Cellulitis Bilateral lower extremities. Diet: Renal BMI: 27.4 kg/m2 RD to follow per nutrition care standards.
[2021-09-07] MEDS ORDERED: CALCIUM 500 MG/TAB PO PRN (15:15)
[2021-09-07] MEDS ORDERED: DIPHENHYDRAMINE HCL 50 MG CAPSULE PO SCH (15:15)
[2021-09-07] MEDS ORDERED: BISACODYL 10 MG/SUPPOSITORY RC PRN (15:15)
[2021-09-07] MEDS ORDERED: ALBUTEROL SULFATE 0.083% 2.5 MG/3 ML VIAL.NEB INH PRN (15:15)
[2021-09-07 15:32] VITALS: BP_SYST 159
[2021-09-07] MEDS: LORazepam 2 MG/ML VIAL IM PRN ×2 (15:33→22:09)
[2021-09-07 15:35] VITALS: BP_SYST 159
--- NOTE | 2021-09-07 15:38 | NUR ---
CONSULTATION PAGED REASON FOR CONSULTATION:PATIENT REQUEST WAS CONSULT CALLED?Y PERSON WHO WAS NOTIFIED: MARILYN CONSULTING PHYSICIAN:SARAH TIJERINA (ELIANA ARCE [employer] WELL LOGGING ENGINEER) EMPLOYEE BENEFITS ADMINISTRATOR SPECIALTY:GI EMPLOYEE BENEFITS ADMINISTRATOR PHONE NUMBER:[phone] REQUESTING PHYSICIAN:BASIL BERMUDEZ
--- NOTE | 2021-09-07 15:42 | NUR ---
CONSULTATION PAGED REASON FOR CONSULTATION:HX CHF WAS CONSULT CALLED?Y PERSON WHO WAS NOTIFIED: SONJA HURTADO CONSULTING PHYSICIAN:SONJA HURTADO FORMING MACHINE TENDER SPECIALTY:CARDIO FORMING MACHINE TENDER PHONE NUMBER:[phone] REQUESTING PHYSICIAN:BASIL BERMUDEZ
--- NOTE | 2021-09-07 16:37 | NUR ---
MD rounds is into see the patient, patient refused IJ placement. MD provided eduction patient does not want IJ placed.
--- NOTE | 2021-09-07 16:46 | NUR ---
Patient refused Reenforced education regarding wound care and taking wound pictures, patient refused care.
--- NOTE | 2021-09-07 18:22 | NUR ---
Closing note Patient is resting in bed A&Ox4 complaint of pain, will provide PRN medication, no signs or symptoms of respiratory distress.Patient is till refusing IV placement and wound care. Bed is in lowest position call light within reach, fall and aspiration precautions are in place, will endorse report to night nurse.
--- NOTE | 2021-09-07 19:31 | NUR ---
rounds Dr. Mini Wills here to see pt.
[2021-09-07 20:00] VITALS: BP_SYST 141
--- NOTE | 2021-09-07 21:00 | NUR ---
Lab at bedside.
[2021-09-07] MEDS: PHENYTOIN 100 MG CAPSULE PO SCH (21:16)
[2021-09-07] MEDS: ACETAMINOPHEN 325 MG TABLET PO PRN (21:17)
[2021-09-07] MEDS: traZODone HCL 50 MG TABLET (DESYREL) PO SCH (21:19)
[2021-09-07] MEDS: PREGABALIN 75 MG CAPSULE (LYRICA) PO SCH (21:19)
[2021-09-07] MEDS: DONEPEZIL HCL 5 MG TABLET (ARICEPT) PO SCH (21:19)
[2021-09-07] MEDS: DIPHENHYDRAMINE HCL 50 MG CAPSULE PO PRN (21:31)
[2021-09-07] MEDS: NORTRIPTYLINE HCL 25 MG CAPSULE PO SCH (21:36)
--- NOTE | 2021-09-07 22:20 | NUR ---
Rounds/Pt refused photo Pt refused photo taken of BLE cellulitis and R. arm skin tear at this time. Pt refused to have left side rail up. Educated provided.
[2021-09-08 00:17] VITALS: BP_SYST 130
[2021-09-08] MEDS: CLINDAMYCIN HCL 150 MG CAPSULE PO SCH ×4 (00:24→17:51)
[2021-09-08] MEDS: HYDROmorphone 2 MG/ML VIAL IM PRN ×7 (00:25→20:50)
--- NOTE | 2021-09-08 04:40 | NUR ---
Rounds/pain Pt awake and called for pain medicine/Ativan. VSS. Medicated for c/o chronic generalized pain as needed. Pt educated on side effects of pain meds, verbalized understanding. Call light within reach. To monitor.
[2021-09-08] MEDS: LORazepam 2 MG/ML VIAL IM PRN ×3 (04:43→16:06)
[2021-09-08] MEDS: ACETAMINOPHEN 325 MG TABLET PO PRN ×3 (04:52→17:44)
[2021-09-08] MEDS: PIPERACILLIN/TAZO 3.375/DEX-IS 50 ML IV SCH ×4 (05:03→18:00)
--- NOTE | 2021-09-08 05:48 | NUR ---
Pt refused blood draw at this time.
--- NOTE | 2021-09-08 06:43 | NUR ---
Closing notes Pt awake, comfortable, no s/s distress noted. No IV access (MD aware). Crackers provided per pt request. Spoke with dietary re pt request for breakfast. Call light within reach. Safety maintained. To endorse to AM nurse.
[2021-09-08 08:00] VITALS: BP_SYST 147
--- NOTE | 2021-09-08 08:00 | NUR ---
OPENING NOTES AWAKE AND ORIENTED. NO SHORTNESS OF BREATH ON ROOM AIR. COMPLAINS OF 10/10 PAIN ON BACK, SHOULDERS AND LEGS. REFUSED IV INSERTION. PREFERS IM INJECTIONS. REDNESS NOTED ON BILATERAL LEGS. NO DRAINAGE. PLAN OF CARE DISCUSSED WITH PATIENT, VERBALIZED UNDERSTANDING. SAFETY CHECKS DONE. CALL LIGHT WITHIN REACH.
--- NOTE | 2021-09-08 08:36 | NUR ---
PAIN MEDICATED. REFUSED TO TAKE ORAL MEDICATIONS THIS TIME.
[2021-09-08] MEDS: CLOPIDOGREL BISULFATE 75 MG TABLET PO SCH (09:00)
[2021-09-08] MEDS: VANCOMYCIN HCL 1,000 MG in NS 250 ML IV SCH (09:00)
[2021-09-08] MEDS: DOCUSATE SODIUM 100 MG CAPSULE PO SCH (09:00)
[2021-09-08] MEDS: PHENYTOIN 100 MG CAPSULE PO SCH ×3 (10:07→20:54)
[2021-09-08] MEDS: LISINOPRIL 10 MG TABLET (PRINIVIL) PO SCH (10:07)
[2021-09-08] MEDS: PREGABALIN 75 MG CAPSULE (LYRICA) PO SCH ×2 (10:08→20:53)
[2021-09-08] MEDS: FLUoxetine HCL 20 MG CAPSULE (PROzac) PO SCH (10:08)
[2021-09-08] MEDS: ALLOPURINOL 300 MG TABLET (ZYLOPRIM) PO SCH (10:08)
[2021-09-08] MEDS: LEVOTHYROXINE SODIUM 0.125 MG TABLET PO SCH (10:08)
--- NOTE | 2021-09-08 10:10 | NUR ---
ORAL MEDS AGREED TO TAKE ORAL MEDICATIONS. REFUSED TO HAVE THE ABDOMINAL ULTRASOUND AND THE LIVER BIOPSY DONE AT THIS TIME. SHE SAID SHE WANTS IT DONE TOMORROW. REQUESTED TO HAVE ATIVAN. WILL MEDICATE.
--- NOTE | 2021-09-08 11:48 | NUR ---
PAIN COMPLAINS OF BACK, SHOULDER AND LEG PAIN. DESCRIBED PAIN CONSTANT AND ACHING. WANTS HER IV PAIN MEDICATION EVERY 3 HOURS. SAFETY CHECKS DONE. WILL MONITOR.
[2021-09-08] MEDS: cloNIDine HCL 0.3 MG/24 HR PATCH.TDWK TD SCH (11:50)
[2021-09-08 14:25] LABS: CALCIUM 8.5 mg/dL (8.4-11.0); CREATININE 0.91 mg/dL (0.55-1.30); POTASSIUM 3.9 mmol/L (3.5-5.1)
--- NOTE | 2021-09-08 14:50 | NUR ---
PAIN PAIN ON BOTH LEGS, BACK, SHOULDERS AND HEAD. SHE SAID THE PAIN IS CONSTANT AND WOULD ONLY GO DOWN TO A 5 AFTER PAIN MEDS AND ONLY LASTS ABOUT HALF AN HOUR. MEDICATED.
[2021-09-08 15:07] VITALS: BP_SYST 109
--- NOTE | 2021-09-08 16:15 | NUR ---
MD ROUNDS SEEN BY DR. FLYNN. PATIENT HAD AN ANXIETY ATTACK AND WAS CRYING. MEDICATED REQUESTED.
--- NOTE | 2021-09-08 17:50 | NUR ---
PAIN MEDICATED REQUESTED. PATIENT IS AWARE THAT SHE NEEDS TO SUBMIT A URINE SAMPLE.
--- NOTE | 2021-09-08 18:51 | NUR ---
CLOSING NOTES RESTING. ALL NEEDS MET THROUGHOUT SHIFT. CALL LIGHT WITHIN REACH. WILL ENDORSE TO NIGHT NURSE.
--- NOTE | 2021-09-08 19:10 | NUR ---
OPENING NOTES RECEIVED PATIENT RESTING IN BED, NO SIGNS OF DISTRESS NOTED. CALL LIGHT WITHIN REACH, PATIENT DEMONSTRATES PROPER CALL LIGHT USAGE, BED ALARM REFUSED, BED AT LOWEST POSITION, BED LOCKED. FALL, RESPIRATORY, ASPIRATION AND SAFETY PRECAUTIONS IN PLACE. DISCUSSED PLAN OF CARE WITH PATIENT, PATIENT STATES SHE NEEDS HER PAIN MEDICATIONS ON THE DOT. EXPLAINED TO PATIENT THAT PATIENT NEEDS TO BE NPO, PATIENT DOES NOT LISTEN TO TEACHING AND STATES "DON'T WORRY ABOUT IT" WILL FOLLOW UP.
[2021-09-08] MEDS: DONEPEZIL HCL 5 MG TABLET (ARICEPT) PO SCH (20:53)
[2021-09-08] MEDS: traZODone HCL 50 MG TABLET (DESYREL) PO SCH (20:53)
[2021-09-08] MEDS: NORTRIPTYLINE HCL 25 MG CAPSULE PO SCH (20:54)
--- NOTE | 2021-09-08 22:19 | NUR ---
SPOKE TO DR. FLYNN, NEW ORDERS RECEIVED FOR MELATONIN 5MG PRN HS, WILL FOLLOW THROUGH.
--- NOTE | 2021-09-08 22:21 | NUR ---
HIGH ALERT NOTE: Called Dr. FLYNN back at [phone] identified within the medical roster to verify physician authenticity.
--- NOTE | 2021-09-08 23:30 | NUR ---
PATIENT BEHAVIOR PATIENT DEMANDS TO HAVE PAIN MEDICATION PULLED OUT BEFORE GETTING BLOOD PRESSURE TAKEN. PATIENT EXPLAINS THAT SHE REFUSES VITALS TO BE TAKEN AT ALL. PATIENT STATES "YOU SHOULD BE ASHAMED OF YOURSELF, I WILL BE CALLING THE ADMINISTRATION AND TALKING TO UNIFORM CAP OPERATOR." EXPLAINED TO PATIENT THE IMPORTANCE OF MEDICATION ADMINISTRATION SIDE EFFECTS AND VITALS SIGNS. PATIENT REFUSES TO LISTEN.
[2021-09-08] MEDS ORDERED: MELATONIN 3 MG TABLET ONE (23:55)
--- NOTE | 2021-09-08 23:55 | NUR ---
SPOKE TO DR. FLYNN, EXPLAINED THAT MELATONIN 5MG AVAILABLE, ONLY 2 3MG TABLETS AVAILABLE. MD STATES 6MG OF MELATONIN ONCE FOR NOW. WILL CONTINUE TO MONITOR.
--- NOTE | 2021-09-08 23:58 | NUR ---
HIGH ALERT NOTE: Called Dr. FLYNN back at [phone] identified within the medical roster to verify physician authenticity.
[2021-09-09] VITALS: BP_SYST 143
[2021-09-09] MEDS ORDERED: MELATONIN 3 MG TABLET PO ONE
--- NOTE | 2021-09-09 | NUR ---
EXPLAINED TO PATIENT THAT PATIENT WILL HAVE TO BE NPO AT MIDNIGHT, PATIENT STATES THE DOCTOR HAD NEVER EXPLAINED THAT PATIENT REFUSES TO BE NPO. ATTEMPTED TO PROVIDE EDUCATION, PATIENT REFUSES TO LISTEN, MADE CHARGE NURSE AWARE.
[2021-09-09] MEDS: CLINDAMYCIN HCL 150 MG CAPSULE PO SCH ×5 (00:10→23:51)
[2021-09-09] MEDS: LORazepam 2 MG/ML VIAL IM PRN ×5 (00:14→21:07)
[2021-09-09] MEDS: HYDROmorphone 2 MG/ML VIAL IM PRN ×10 (00:14→23:47)
[2021-09-09] MEDS: PIPERACILLIN/TAZO 3.375/DEX-IS 50 ML IV SCH ×5 (06:00→23:50)
--- NOTE | 2021-09-09 06:48 | NUR ---
DILAUDID PROVIDED IM IN LEFT ARM. PATIENT STATES SHE WANTS ATIVAN GIVEN AND WANTS THE CHARGE NURSE TO GIVE IT AFTER EXPLAINING WE DO NOT WANT TO PROVIDE IT TOGETHER. WILL CONTINUE TO MONITOR.
--- NOTE | 2021-09-09 07:12 | NUR ---
CLOSING NOTES PATIENT RESTING IN BED, NO SIGNS OF DISTRESS NOTED. CALL LIGHT WITHIN REACH, PATIENT DEMONSTRATES PROPER CALL LIGHT USAGE, BED ALARM REFUSED, BED AT LOWEST POSITION, BED LOCKED. FALL, RESPIRATORY, ASPIRATION AND SAFETY PRECAUTIONS IN PLACE THROUGHOUT SHIFT. WILL ENDORSE CARE TO ONCOMING SHIFT.
[2021-09-09] MEDS: CLOPIDOGREL BISULFATE 75 MG TABLET PO SCH (09:00)
[2021-09-09] MEDS: ALLOPURINOL 300 MG TABLET (ZYLOPRIM) PO SCH (09:00)
[2021-09-09] MEDS: PHENYTOIN 100 MG CAPSULE PO SCH ×3 (09:00→16:04)
[2021-09-09] MEDS: LISINOPRIL 10 MG TABLET (PRINIVIL) PO SCH (09:00)
[2021-09-09] MEDS: DOCUSATE SODIUM 100 MG CAPSULE PO SCH (09:00)
[2021-09-09] MEDS: LEVOTHYROXINE SODIUM 0.125 MG TABLET PO SCH (09:00)
[2021-09-09] MEDS: VANCOMYCIN HCL 1,000 MG in NS 250 ML IV SCH (09:00)
[2021-09-09] MEDS: HYDROmorphone 2 MG TAB PO PRN (10:38)
[2021-09-09] MEDS: PREGABALIN 75 MG CAPSULE (LYRICA) PO SCH ×2 (10:51→20:06)
[2021-09-09] MEDS: FLUoxetine HCL 20 MG CAPSULE (PROzac) PO SCH (10:52)
--- NOTE | 2021-09-09 11:44 | NUR ---
Discharge Planning: DCP faxed pt referral to [facility] (F [phone] P [phone]) pending DC order, DCP to follow up. Disposition #03 Addendum: 09/09/21 at 1702 by Kayley Boyer DP DCP followed up with [facility] P [phone]) per Kristin pt can not return to facility and pt is aware. DCP faxed to [facility] [phone] and [place] [phone]. [facility] called and requested vaccinated status of pt, DCP made CM aware.
[2021-09-09 13:56] VITALS: BP_SYST 162
[2021-09-09 17:39] VITALS: BP_SYST 148
--- NOTE | 2021-09-09 18:54 | NUR ---
PT NONCOMPLIANCE REFUSED REFUSED TO SIGN CONSENT FOR BX REFUSED IV ACCESS PLS INFORM MD WHEN COME
[2021-09-09 20:00] VITALS: BP_SYST 145
[2021-09-09] MEDS: ACETAMINOPHEN 325 MG TABLET PO PRN (20:06)
[2021-09-09] MEDS: DONEPEZIL HCL 5 MG TABLET (ARICEPT) PO SCH (20:06)
[2021-09-09] MEDS: traZODone HCL 50 MG TABLET (DESYREL) PO SCH (20:07)
[2021-09-09] MEDS: NORTRIPTYLINE HCL 25 MG CAPSULE PO SCH (20:07)
--- NOTE | 2021-09-09 23:56 | NUR ---
PT REFUSED PO ANTIBIOTICS AND STATED IT WOULD GIVE HIM DIARRHEA. RN EXPLAINED THE IMPORTANCE OF TAKIGN THE MEDICATION TO TREAT INFECTION.
[2021-09-10] VITALS (8 sets, daily range): BP systolic 136–146
[2021-09-10] MEDS: HYDROmorphone 2 MG/ML VIAL IM PRN ×6 (04:08→20:15)
[2021-09-10] MEDS: LORazepam 2 MG/ML VIAL IM PRN ×4 (05:35→21:52)
[2021-09-10] MEDS: CLINDAMYCIN HCL 150 MG CAPSULE PO SCH ×4 (05:38→23:51)
[2021-09-10] MEDS: PIPERACILLIN/TAZO 3.375/DEX-IS 50 ML IV SCH ×4 (05:38→23:42)
--- NOTE | 2021-09-10 08:00 | NUR ---
Initial Note Patient asleep, wakes to verbal stimuli. Oriented x 4. Patient refusing assessment and morning medications until next Dilaudid administration. Reports pain 6/, received Dilaudid at 0700. States pain is controlled. No distress noted. No IV access, patient continues to refuse start of IV. Education provided. Call light in reach and bed in lowest position. Encouraged to call.
[2021-09-10] MEDS: VANCOMYCIN HCL 1,000 MG in NS 250 ML IV SCH (09:00)
[2021-09-10] MEDS: LEVOTHYROXINE SODIUM 0.125 MG TABLET PO SCH (09:57)
[2021-09-10] MEDS: FLUoxetine HCL 20 MG CAPSULE (PROzac) PO SCH (09:57)
[2021-09-10] MEDS: PREGABALIN 75 MG CAPSULE (LYRICA) PO SCH ×2 (09:58→20:55)
[2021-09-10] MEDS: PHENYTOIN 100 MG CAPSULE PO SCH ×3 (09:59→20:55)
[2021-09-10] MEDS: CLOPIDOGREL BISULFATE 75 MG TABLET PO SCH (09:59)
[2021-09-10] MEDS: LISINOPRIL 10 MG TABLET (PRINIVIL) PO SCH (09:59)
[2021-09-10] MEDS: DOCUSATE SODIUM 100 MG CAPSULE PO SCH (10:00)
[2021-09-10] MEDS: ALLOPURINOL 300 MG TABLET (ZYLOPRIM) PO SCH (10:01)
[2021-09-10] MEDS: ACETAMINOPHEN 325 MG TABLET PO PRN (10:23)
--- NOTE | 2021-09-10 10:50 | NUR ---
Notes Informed consent obtained from patient for CT liver biopsy.
--- NOTE | 2021-09-10 12:00 | NUR ---
Notes Patient refusing to receive medications unless given along with Dilaudid. Refusing Clindamycin, patient states it gives her diarrhea. Education provided on antibiotic administration for infection. Patient states pain is controlled at this time. Received PRN Ativan for anxiety. Call light in reach and bed in lowest position. Encouraged to call.
[2021-09-10 15:51] LABS: BASOPHILS # (AUTO) 0.1 K/uL (0.0-0.2); BASOPHILS % (AUTO) 0.9 % (0.0-2.0); EOSINOPHILS # (AUTO) 0.2 K/uL (0.0-0.4); EOSINOPHILS % (AUTO) 1.9 % (0.0-4.0); HEMATOCRIT 35.4 % (36-48); HEMOGLOBIN 12.4 g/dL (12.0-16.0); LYMPHOCYTES # (AUTO) 2.6 K/uL (1.0-5.5); LYMPHOCYTES % (AUTO) 28.9 % (20.5-51.5); MEAN CORPUSCULAR HEMOGLOBIN 34 pg (27-31); MEAN CORPUSCULAR HGB CONC 35 % (32-36); MEAN CORPUSCULAR VOLUME 97 fL (79.0-98.0); MONOCYTES # (AUTO) 0.5 K/uL (0.0-1.0); MONOCYTES % (AUTO) 5.6 % (1.7-9.3); NEUTROPHILS # (AUTO) 5.6 K/uL (1.8-7.7); NEUTROPHILS % (AUTO) 62.7 % (40.0-70.0); PLATELET COUNT (AUTO) 182 K/uL (130-430); RED BLOOD CELL COUNT(AUTO) 3.65 MIL/uL (4.2-6.2); RED CELL DISTRIBUTION WIDTH 13.6 % (9.0-15.0)
--- NOTE | 2021-09-10 16:00 | NUR ---
Notes Patient resting in bed, wakes to verbal stimuli. Requesting Ativan with administration of Dilaudid. Provided education for patient on safety and notified that she cannot have these medications given together. Patient acceptance of education is passive. Will continue to educate. No distress noted. Placed call light, bedside commode, and bedside table within reach. Encouraged to call.
[2021-09-10 16:09] LABS: ALBUMIN 3.4 g/dL (3.4-4.8); CALCIUM 8.5 mg/dL (8.4-11.0); CREATININE 0.65 mg/dL (0.55-1.30); PHOSPHORUS 3.3 mg/dL (2.7-4.5); POTASSIUM 3.6 mmol/L (3.5-5.1); TOTAL BILIRUBIN 0.3 mg/dL (0.0-1.0)
--- NOTE | 2021-09-10 17:30 | NUR ---
Notes Patient continues to refuse medications. Oriented x 4. Educated on medications, diagnosis, infection, and safety. Patient states she does not want to hear or talk about it, requesting Ativan only at this time. All needs met and call light in reach. Will continue to educate and monitor for safety.
--- NOTE | 2021-09-10 18:35 | NUR ---
Closing Note Patient resting in bed. Pain is controlled at this time and no distress noted. Call light in reach and bed in lowest position. Education provided for patient regarding plan of care and diagnosis. Patient passive regarding information provided. Call light in reach and bed in lowest position. Encouraged to call. Will continue to monitor and endorse to night nurse.
--- NOTE | 2021-09-10 20:15 | NUR ---
Opening notes PT AAOx4, VSS, afebrile. No s/s distress noted. Pt medicated with Dilaudid 2mg IM as needed for c/o chronic pain. Pt still refuse IV access placement. Pt uses BSC and had a BM. Updated with plan of care re CT scan and biopsy of Liver on monday. Call light within reach. Safety maintained. To monitor.
[2021-09-10] MEDS: NORTRIPTYLINE HCL 25 MG CAPSULE PO SCH (20:55)
[2021-09-10] MEDS: DONEPEZIL HCL 5 MG TABLET (ARICEPT) PO SCH (20:56)
[2021-09-10] MEDS: traZODone HCL 50 MG TABLET (DESYREL) PO SCH (20:56)
[2021-09-10] MEDS: MELATONIN 5 MG TABLET PO PRN (22:00)
[2021-09-11] MEDS: HYDROmorphone 2 MG/ML VIAL IM PRN ×7 (02:55→21:28)
[2021-09-11] MEDS: LORazepam 2 MG/ML VIAL IM PRN ×4 (03:41→20:15)
[2021-09-11] MEDS: PIPERACILLIN/TAZO 3.375/DEX-IS 50 ML IV SCH (06:00)
[2021-09-11] MEDS: CLINDAMYCIN HCL 150 MG CAPSULE PO SCH ×3 (06:00→17:48)
--- NOTE | 2021-09-11 06:05 | NUR ---
[place] states she will come back later to draw blood.
--- NOTE | 2021-09-11 06:06 | NUR ---
Closing notes/Pain Pt awake, no s/s distress, c/o generalized pain /10, medicated with Dilaudid 2mg IM. Call light within reach. To endorse to AM nurse.
--- NOTE | 2021-09-11 07:50 | NUR ---
OPENING NOTES: PATIENT RESTING IN BED. REFUSED ANY PATIENT CARE AT THIS TIME. REFUSED VITAL SIGNS. BREATHING EVEN AND NON LABORED. FALL AND SAFETY MEASURES REINFORCED. CALL LIGHT WITHIN REACH.
[2021-09-11 09:00] VITALS: BP_SYST 135
[2021-09-11] MEDS: CLOPIDOGREL BISULFATE 75 MG TABLET PO SCH (09:00)
[2021-09-11] MEDS: LISINOPRIL 10 MG TABLET (PRINIVIL) PO SCH (09:00)
[2021-09-11] MEDS: VANCOMYCIN HCL 1,000 MG in NS 250 ML IV SCH (09:00)
[2021-09-11] MEDS: DOCUSATE SODIUM 100 MG CAPSULE PO SCH (09:00)
[2021-09-11] MEDS: FLUoxetine HCL 20 MG CAPSULE (PROzac) PO SCH (09:27)
[2021-09-11] MEDS: PHENYTOIN 100 MG CAPSULE PO SCH ×3 (09:28→21:16)
[2021-09-11] MEDS: PREGABALIN 75 MG CAPSULE (LYRICA) PO SCH ×2 (09:28→21:16)
[2021-09-11] MEDS: LEVOTHYROXINE SODIUM 0.125 MG TABLET PO SCH (09:28)
[2021-09-11] MEDS: ALLOPURINOL 300 MG TABLET (ZYLOPRIM) PO SCH (09:39)
[2021-09-11 12:00] VITALS: BP_SYST 138
--- NOTE | 2021-09-11 12:46 | NUR ---
RN NOTES: PATIENT C/O PAIN. REUSED PATIENT CARE EXCEPT GIVING PRN PAIN MEDS. PRN PAIN MEDS GIVEN. NO S/S OF ACUTE DISTRESS NOTED. CALL LIGHT WITHIN REACH. REFUSED IV REINSERTION.
[2021-09-11] MEDS: ACETAMINOPHEN 325 MG TABLET PO PRN ×2 (14:19→21:17)
[2021-09-11 18:23] VITALS: BP_SYST 135
--- NOTE | 2021-09-11 18:25 | NUR ---
CLOSING NOTES: PATIENT EATING DINNER. NO SIGNS OF ACUTE DISTRESS NOTED. PRN PAIN MEDICATION GIVEN. C/O PAIN (10), GENERALIZED. FALL AND SAFETY MEASURES PROVIDED. CALL LIGHT WITHIN REACH. WILL CONTINUE MONITOR UNTIL ENDORSE TO EIGHT ARM OPERATOR RN.
[2021-09-11 19:02] LABS: ALBUMIN 3.4 g/dL (3.4-4.8); CREATININE 0.6 mg/dL (0.55-1.30); POTASSIUM 3.7 mmol/L (3.5-5.1); TOTAL BILIRUBIN 0.3 mg/dL (0.0-1.0)
[2021-09-11 19:14] LABS: PROTHROMBIN TIME 10.7 SECS (9.5-12.5)
--- NOTE | 2021-09-11 19:30 | NUR ---
Opening note Pt resting in bed. No s/s of respiratory distress. Breathing even and unlabored. Bed is locked in lowest position with call light within reach
[2021-09-11 20:00] VITALS: BP_SYST 127
[2021-09-11] MEDS: NORTRIPTYLINE HCL 25 MG CAPSULE PO SCH (21:16)
[2021-09-11] MEDS: DONEPEZIL HCL 5 MG TABLET (ARICEPT) PO SCH (21:16)
[2021-09-11] MEDS: traZODone HCL 50 MG TABLET (DESYREL) PO SCH (21:17)
[2021-09-11] MEDS: DIPHENHYDRAMINE HCL 50 MG CAPSULE PO PRN (22:56)
[2021-09-12] VITALS: BP_SYST 145
--- NOTE | 2021-09-12 00:15 | NUR ---
Rounds Pt resting in bed. PRN meds given. No other needs at this time. Fall and safety precautions in check
[2021-09-12] MEDS: LORazepam 2 MG/ML VIAL IM PRN ×6 (00:16→23:49)
[2021-09-12] MEDS: HYDROmorphone 2 MG/ML VIAL IM PRN ×8 (00:21→21:26)
[2021-09-12] MEDS: ACETAMINOPHEN 325 MG TABLET PO PRN ×2 (03:28→14:10)
[2021-09-12] MEDS: CLINDAMYCIN HCL 150 MG CAPSULE PO SCH ×4 (06:19→17:10)
--- NOTE | 2021-09-12 06:36 | NUR ---
Closing note Pt resting in bed. No s/s of respiratory distress. Breathing even and unlabored. Fall and safety precautions in place with bed in lowest position and call light within reach. All needs met throughout shift. Will monitor until endorsed to day shift
--- NOTE | 2021-09-12 08:00 | NUR ---
OPENING NOTES: PATIENT RESTING IN BED. BREATHING EVEN AND NON LABORED. FALL AND SAFETY MEASURES REINFORCED. CALL LIGHT WITHIN REACH.
[2021-09-12 09:00] VITALS: BP_SYST 128
[2021-09-12] MEDS: LISINOPRIL 10 MG TABLET (PRINIVIL) PO SCH (09:00)
[2021-09-12] MEDS: DOCUSATE SODIUM 100 MG CAPSULE PO SCH (09:00)
[2021-09-12] MEDS: CLOPIDOGREL BISULFATE 75 MG TABLET PO SCH (09:00)
[2021-09-12] MEDS: PHENYTOIN 100 MG CAPSULE PO SCH ×3 (09:10→21:19)
[2021-09-12] MEDS: FLUoxetine HCL 20 MG CAPSULE (PROzac) PO SCH (09:18)
[2021-09-12] MEDS: PREGABALIN 75 MG CAPSULE (LYRICA) PO SCH ×2 (09:18→21:19)
[2021-09-12] MEDS: ALLOPURINOL 300 MG TABLET (ZYLOPRIM) PO SCH (09:18)
[2021-09-12] MEDS: LEVOTHYROXINE SODIUM 0.125 MG TABLET PO SCH (09:20)
[2021-09-12] MEDS: DIPHENHYDRAMINE HCL 50 MG CAPSULE PO PRN ×2 (09:26→17:08)
[2021-09-12 15:32] LABS: BASOPHILS # (AUTO) 0.1 K/uL (0.0-0.2); BASOPHILS % (AUTO) 0.9 % (0.0-2.0); EOSINOPHILS # (AUTO) 0.3 K/uL (0.0-0.4); EOSINOPHILS % (AUTO) 3.1 % (0.0-4.0); HEMATOCRIT 35.3 % (36-48); HEMOGLOBIN 12.3 g/dL (12.0-16.0); LYMPHOCYTES # (AUTO) 2.5 K/uL (1.0-5.5); MEAN CORPUSCULAR HEMOGLOBIN 34 pg (27-31); MEAN CORPUSCULAR HGB CONC 35 % (32-36); MEAN CORPUSCULAR VOLUME 98 fL (79.0-98.0); MONOCYTES # (AUTO) 0.4 K/uL (0.0-1.0); MONOCYTES % (AUTO) 4.7 % (1.7-9.3); NEUTROPHILS # (AUTO) 5.3 K/uL (1.8-7.7); NEUTROPHILS % (AUTO) 62.3 % (40.0-70.0); PLATELET COUNT (AUTO) 183 K/uL (130-430); RED CELL DISTRIBUTION WIDTH 13.2 % (9.0-15.0); WHITE BLOOD COUNT (AUTO) 8.6 K/uL (4.8-10.8)
[2021-09-12 16:14] LABS: CALCIUM 8.2 mg/dL (8.4-11.0); CREATININE 0.73 mg/dL (0.55-1.30); POTASSIUM 3.9 mmol/L (3.5-5.1)
[2021-09-12 17:11] VITALS: BP_SYST 132
--- NOTE | 2021-09-12 17:35 | NUR ---
SPOKE TO DR. OLEARY: PER DR. OLEARY, PT HAS HIGH GLUCOSE. ORDER TO HAVE ACCUCHECK BID AC, TO MONITOR GLUCOSE. FOR THE MEANTIME NO INSULIN ORDER YET PER DR. OLEARY.
--- NOTE | 2021-09-12 19:14 | NUR ---
CLOSING NOTES: PATIENT EATING DINNER. NO SIGNS OF ACUTE DISTRESS NOTED. FALL AND SAFETY MEASURES PROVIDED. CALL LIGHT WITHIN REACH. WILL CONTINUE MONITOR UNTIL ENDORSE TO HOOD MAKER RN.
--- NOTE | 2021-09-12 19:30 | NUR ---
Opening note Received report from day shift. Pt sitting up in bed. No s/s of respiratory distress. Breathing even and unlabored. Fall and safety precautions are in place with bed locked in lowest position and call light within reach
[2021-09-12 20:00] VITALS: BP_SYST 126
[2021-09-12] MEDS: MELATONIN 5 MG TABLET PO PRN (21:18)
[2021-09-12] MEDS: DONEPEZIL HCL 5 MG TABLET (ARICEPT) PO SCH (21:19)
[2021-09-12] MEDS: traZODone HCL 50 MG TABLET (DESYREL) PO SCH (21:19)
[2021-09-12] MEDS: DICYCLOMINE HCL 10 MG CAPSULE PO SCH (21:19)
[2021-09-12] MEDS: NORTRIPTYLINE HCL 25 MG CAPSULE PO SCH (21:20)
[2021-09-13 00:18] VITALS: BP_SYST 126
--- NOTE | 2021-09-13 00:30 | NUR ---
Rounds Pt resting in bed. PRN pain medication given. No other needs at this time. Fall and safety precautions in check
[2021-09-13] MEDS: HYDROmorphone 2 MG/ML VIAL IM PRN ×4 (00:40→09:30)
[2021-09-13] MEDS: ACETAMINOPHEN 325 MG TABLET PO PRN ×2 (03:18→17:11)
[2021-09-13] MEDS: DIPHENHYDRAMINE HCL 50 MG CAPSULE PO PRN ×2 (03:18→15:02)
[2021-09-13] MEDS: LORazepam 2 MG/ML VIAL IM PRN ×2 (04:24→10:21)
[2021-09-13] MEDS: CLINDAMYCIN HCL 150 MG CAPSULE PO SCH ×4 (06:20→18:19)
[2021-09-13 08:00] VITALS: BP_SYST 142
--- NOTE | 2021-09-13 08:00 | NUR ---
Initial notes Awake and oriented, lying in bed, no distress, educated on pain management. call light within reach.
[2021-09-13] MEDS ORDERED: LIDOCAINE 1%, 20 ML MDV 20 ML ONE (08:55)
[2021-09-13] MEDS: LISINOPRIL 10 MG TABLET (PRINIVIL) PO SCH (09:00)
[2021-09-13] MEDS: CLOPIDOGREL BISULFATE 75 MG TABLET PO SCH (09:00)
[2021-09-13] MEDS: DOCUSATE SODIUM 100 MG CAPSULE PO SCH (09:00)
[2021-09-13] MEDS: ALLOPURINOL 300 MG TABLET (ZYLOPRIM) PO SCH (09:21)
[2021-09-13] MEDS: DICYCLOMINE HCL 10 MG CAPSULE PO SCH ×3 (09:21→22:08)
[2021-09-13] MEDS: PREGABALIN 75 MG CAPSULE (LYRICA) PO SCH ×2 (09:21→22:08)
[2021-09-13] MEDS: PHENYTOIN 100 MG CAPSULE PO SCH ×3 (09:21→22:08)
[2021-09-13] MEDS: FLUoxetine HCL 20 MG CAPSULE (PROzac) PO SCH (09:21)
[2021-09-13] MEDS: LEVOTHYROXINE SODIUM 0.125 MG TABLET PO SCH (09:21)
--- NOTE | 2021-09-13 10:30 | NUR ---
Notes- pt went to CT scan for liver biopsy
--- NOTE | 2021-09-13 10:43 | NUR ---
Dietitian Recommendations *Recommend: continue Clear liquid diet per MD. ONS Ensure Clear TID comes standard w/ diet and provides: 720 kcal and 24gm protein daily. *Advance diet when able. Diet rec: [facility] Cardiac diet. Please see nutritional assessment for details. BILLY RICKETTS
--- NOTE | 2021-09-13 11:56 | NUR ---
Notes- patient came back from CT scan, pt upset and crying that her call light is stack on the bed. apologize to patient and make her comfortable.
[2021-09-13] MEDS: HYDROmorphone 2 MG/ML VIAL IV PRN ×4 (12:15→21:38)
[2021-09-13] MEDS: VANCOMYCIN HCL 1 GM/NS PREMIX 250 ML IV SCH (14:00)
--- NOTE | 2021-09-13 14:45 | NUR ---
vanco- patient refused vanco antibitoics.
[2021-09-13] MEDS: LORazepam 2 MG/ML VIAL IV PRN ×2 (14:52→22:24)
[2021-09-13] MEDS ORDERED: SORBITOL 70% SOLUTION, 30 ML UDBTL PO ONE (15:00)
[2021-09-13] MEDS ORDERED: MAGNESIUM CITRATE 300 ML ORAL SOLUTION PO ONE (16:00)
[2021-09-13 16:04] VITALS: BP_SYST 157
[2021-09-13] MEDS ORDERED: BISACODYL 5 MG TABLET.DR (DULCOLAX) PO ONE (17:00)
--- NOTE | 2021-09-13 17:41 | NUR ---
notes- pt refused to take dulcolax tablet.
[2021-09-13] MEDS ORDERED: GOLYTELY / COLYTE SOLUTION 4 LITERS PO ONE (18:00)
--- NOTE | 2021-09-13 18:58 | NUR ---
closing notes awake, signed consent for EGD and colonoscopy, patient refused to drink the golytely earlier but now she said she will try to drink half of it. Will endorse.
[2021-09-13 20:00] VITALS: BP_SYST 123
[2021-09-13 20:29] LABS: BASOPHILS # (AUTO) 0.1 K/uL (0.0-0.2); BASOPHILS % (AUTO) 1.1 % (0.0-2.0); EOSINOPHILS # (AUTO) 0.3 K/uL (0.0-0.4); EOSINOPHILS % (AUTO) 3.8 % (0.0-4.0); HEMATOCRIT 34.9 % (36-48); LYMPHOCYTES # (AUTO) 2.7 K/uL (1.0-5.5); MEAN CORPUSCULAR HEMOGLOBIN 34 pg (27-31); MEAN CORPUSCULAR HGB CONC 34 % (32-36); MEAN CORPUSCULAR VOLUME 98 fL (79.0-98.0); MONOCYTES # (AUTO) 0.5 K/uL (0.0-1.0); MONOCYTES % (AUTO) 5.8 % (1.7-9.3); NEUTROPHILS # (AUTO) 4.3 K/uL (1.8-7.7); NEUTROPHILS % (AUTO) 55.3 % (40.0-70.0); PLATELET COUNT (AUTO) 180 K/uL (130-430); RED BLOOD CELL COUNT(AUTO) 3.57 MIL/uL (4.2-6.2); RED CELL DISTRIBUTION WIDTH 13.4 % (9.0-15.0); WHITE BLOOD COUNT (AUTO) 7.8 K/uL (4.8-10.8)
[2021-09-13 20:54] LABS: CALCIUM 8.9 mg/dL (8.4-11.0); CREATININE 0.56 mg/dL (0.55-1.30); POTASSIUM 3.9 mmol/L (3.5-5.1)
[2021-09-13] MEDS: DONEPEZIL HCL 5 MG TABLET (ARICEPT) PO SCH (21:00)
[2021-09-13] MEDS: traZODone HCL 50 MG TABLET (DESYREL) PO SCH (22:08)
[2021-09-13] MEDS: NORTRIPTYLINE HCL 25 MG CAPSULE PO SCH (22:08)
[2021-09-14] VITALS (7 sets, daily range): BP systolic 130–156
[2021-09-14] MEDS: HYDROmorphone 2 MG/ML VIAL IV PRN ×7 (00:38→21:55)
[2021-09-14] MEDS: CLINDAMYCIN HCL 150 MG CAPSULE PO SCH ×2 (01:26→06:55)
[2021-09-14] MEDS: VANCOMYCIN HCL 1 GM/NS PREMIX 250 ML IV SCH ×3 (01:32→16:11)
[2021-09-14] MEDS: ACETAMINOPHEN 325 MG TABLET PO PRN ×2 (03:44→16:08)
[2021-09-14] MEDS: LORazepam 2 MG/ML VIAL IV PRN ×4 (04:39→21:45)
--- NOTE | 2021-09-14 05:46 | NUR ---
the pateint was admitted for bilateral lower extremities cellulitis with hx of htn,chf,dm,asthma,seizures and depression. she stated that she has chronic pain , diludid was given for pain management. she stated that she had anxiety, ativan was given .she had liver biopsy yesterday. she is expecting colonoscopy and EGD today. her stool still formed. comfort and safety measures were provided.
--- NOTE | 2021-09-14 08:35 | NUR ---
Patient off the unit to OR for EGD/Colonoscopy today- patient is a/ox4, no signs of distress, no SOB. Midline is patent and intact.
[2021-09-14] MEDS: DICYCLOMINE HCL 10 MG CAPSULE PO SCH ×3 (09:00→21:29)
[2021-09-14] MEDS ORDERED: ONDANSETRON HCL 4 MG/2 ML VIAL IVP PRN (09:30)
[2021-09-14] MEDS ORDERED: LR 1,000 ML IV SCH (09:30)
--- NOTE | 2021-09-14 10:50 | NUR ---
Patient back on the unit from OR - report given to Abdirashid ESPINOSA for continuity of care.
[2021-09-14] MEDS: PREGABALIN 75 MG CAPSULE (LYRICA) PO SCH ×2 (11:19→21:44)
[2021-09-14] MEDS: PHENYTOIN 100 MG CAPSULE PO SCH ×3 (11:20→21:30)
[2021-09-14] MEDS: LISINOPRIL 10 MG TABLET (PRINIVIL) PO SCH (11:20)
[2021-09-14] MEDS: LEVOTHYROXINE SODIUM 0.125 MG TABLET PO SCH (11:21)
[2021-09-14] MEDS: FLUoxetine HCL 20 MG CAPSULE (PROzac) PO SCH (11:21)
[2021-09-14] MEDS: ALLOPURINOL 300 MG TABLET (ZYLOPRIM) PO SCH (11:25)
[2021-09-14] MEDS: DOCUSATE SODIUM 100 MG CAPSULE PO SCH (11:28)
--- NOTE | 2021-09-14 14:00 | NUR ---
PATIENT REFUSED BARIUM STUDY DESPITE EXPLANATION OF BENEFITS. DR. GUTIERREZ IS CALLED. AWAITING CALL BACK.
--- NOTE | 2021-09-14 15:20 | NUR ---
DR. GUTIERREZ CALLS BACK. HE IS INFORMED THAT PATIENT REFUSES BOTH BARIUM STUDY AND MORE COLONOSCOPY. DR. GUTIERREZ STATES THAT THERE IS NOTHING MORE TO DO IN TERMS OF GI STAND POINT.
--- NOTE | 2021-09-14 16:00 | NUR ---
DR. FLYNN IS INFORMED OF THE REFUSAL. PATIENT IS ORDERED TO BE DISCHARGED.
--- NOTE | 2021-09-14 16:34 | NUR ---
CM: Late entry, [facility] accepted to room 6A on Monday, but the pt refused to be discharged. She wanted to have CT liver bx scheduled on Thursday 09/13. She wanted to file the appeal to [facility]. She signed the second IM letter but did call [facility].
[2021-09-14 16:51] LABS: BASOPHILS # (AUTO) 0.1 K/uL (0.0-0.2); EOSINOPHILS # (AUTO) 0.4 K/uL (0.0-0.4); HEMOGLOBIN 12.4 g/dL (12.0-16.0); MEAN CORPUSCULAR HGB CONC 35 % (32-36); MONOCYTES # (AUTO) 0.3 K/uL (0.0-1.0)
--- NOTE | 2021-09-14 16:55 | NUR ---
PATIENT REFUSED TO BE TRANSFERRED OUT TODAY. TRANSFER IS RESCHEDULED TO TOMORROW. DR. FLYNN IS INFORMED
[2021-09-14 17:05] LABS: BASOPHILS % (AUTO) 1.1 % (0.0-2.0); EOSINOPHILS % (AUTO) 4.3 % (0.0-4.0); HEMATOCRIT 35.6 % (36-48); LYMPHOCYTES # (AUTO) 2.7 K/uL (1.0-5.5); LYMPHOCYTES % (AUTO) 32.6 % (20.5-51.5); MEAN CORPUSCULAR HEMOGLOBIN 34 pg (27-31); MEAN CORPUSCULAR VOLUME 97 fL (79.0-98.0); MONOCYTES % (AUTO) 4.2 % (1.7-9.3); NEUTROPHILS # (AUTO) 4.8 K/uL (1.8-7.7); NEUTROPHILS % (AUTO) 57.8 % (40.0-70.0); PLATELET COUNT (AUTO) 192 K/uL (130-430); RED BLOOD CELL COUNT(AUTO) 3.69 MIL/uL (4.2-6.2); RED CELL DISTRIBUTION WIDTH 13.2 % (9.0-15.0); WHITE BLOOD COUNT (AUTO) 8.2 K/uL (4.8-10.8)
[2021-09-14 17:08] LABS: ALBUMIN 3.6 g/dL (3.4-4.8); CALCIUM 8.8 mg/dL (8.4-11.0); CREATININE 0.54 mg/dL (0.55-1.30); POTASSIUM 4.4 mmol/L (3.5-5.1); TOTAL BILIRUBIN 0.3 mg/dL (0.0-1.0)
[2021-09-14 18:43] LABS: PROTHROMBIN TIME 10.8 SECS (9.5-12.5)
[2021-09-14] MEDS: traZODone HCL 50 MG TABLET (DESYREL) PO SCH (21:30)
[2021-09-14] MEDS: NORTRIPTYLINE HCL 25 MG CAPSULE PO SCH (21:43)
[2021-09-14] MEDS: DONEPEZIL HCL 5 MG TABLET (ARICEPT) PO SCH (21:44)
[2021-09-15] MEDS: HYDROmorphone 2 MG TAB PO PRN ×2 (00:16→03:58)
[2021-09-15] MEDS: HYDROmorphone 2 MG/ML VIAL IV PRN ×7 (01:41→21:14)
[2021-09-15] MEDS: VANCOMYCIN HCL 1 GM/NS PREMIX 250 ML IV SCH ×2 (01:52→14:00)
[2021-09-15] MEDS: LORazepam 2 MG/ML VIAL IV PRN ×5 (02:31→20:16)
[2021-09-15] MEDS: ACETAMINOPHEN 325 MG TABLET PO PRN (05:57)
[2021-09-15] MEDS: INSULIN REGULAR, HUMAN 100 UNITS/ML, 10 ML VIAL (humuLIN R) SUBCUT PRN (06:24)
--- NOTE | 2021-09-15 06:37 | NUR ---
PT SLEPT WELL AFTER CONTROLLING HER PAIN , VSS BLOOD SUGAR HIGH COVERED WITH INSULIN
[2021-09-15] MEDS: PREGABALIN 75 MG CAPSULE (LYRICA) PO SCH ×2 (09:00→20:33)
[2021-09-15] MEDS: PHENYTOIN 100 MG CAPSULE PO SCH ×3 (09:00→20:33)
[2021-09-15] MEDS: LISINOPRIL 10 MG TABLET (PRINIVIL) PO SCH (09:00)
[2021-09-15] MEDS: FLUoxetine HCL 20 MG CAPSULE (PROzac) PO SCH (09:00)
[2021-09-15] MEDS: POLYETHYLENE GLYCOL 3350, 17 GM/ POWD.PACK PO SCH (09:00)
[2021-09-15] MEDS: cloNIDine HCL 0.3 MG/24 HR PATCH.TDWK TD SCH (09:00)
[2021-09-15] MEDS: LEVOTHYROXINE SODIUM 0.125 MG TABLET PO SCH (09:00)
[2021-09-15] MEDS: ALLOPURINOL 300 MG TABLET (ZYLOPRIM) PO SCH (09:00)
[2021-09-15] MEDS: DOCUSATE SODIUM 100 MG CAPSULE PO SCH (09:00)
[2021-09-15] MEDS: DICYCLOMINE HCL 10 MG CAPSULE PO SCH ×3 (09:00→20:32)
[2021-09-15 11:25] VITALS: BP_SYST 145
[2021-09-15] MEDS: ONDANSETRON HCL 4 MG/2 ML VIAL IVP PRN (12:30)
--- NOTE | 2021-09-15 13:13 | NUR ---
patient refused Vanco trough lab draw
[2021-09-15 15:14] VITALS: BP_SYST 145
--- NOTE | 2021-09-15 18:50 | NUR ---
dr. courtney informed of inadequate amount of tissue for liver biopsy
[2021-09-15 19:00] VITALS: BP_SYST 143
[2021-09-15 20:00] VITALS: BP_SYST 143
--- NOTE | 2021-09-15 20:00 | NUR ---
pt.assessed.v/s assessed values wnl.pt.requested medication ativan.i have administered ativan;2mg ivp.i apprised the pt.that snacks/beverages are available w/in the shift.pt.requested snacks/juices provided.bsc inspected clean w/in access of the pt. picc line intact iv lock.i have provided demonstration room telephone.pt.returned the demonstration satisfactory.call light/ telephone placed w/in access of the pt.
[2021-09-15] MEDS: traZODone HCL 50 MG TABLET (DESYREL) PO SCH (20:32)
[2021-09-15] MEDS: DONEPEZIL HCL 5 MG TABLET (ARICEPT) PO SCH (20:32)
[2021-09-15] MEDS: NORTRIPTYLINE HCL 25 MG CAPSULE PO SCH (20:33)
--- NOTE | 2021-09-15 21:00 | NUR ---
2100pmedications administered.pt.capable to ingest the po medications w/out difficulty.pt.requested dilaudid. i have administered dilaudid;2mg ivp.to assess the efficacy of the pain medication per pain mgx protocol.
[2021-09-15] MEDS: MELATONIN 5 MG TABLET PO PRN (21:28)
--- NOTE | 2021-09-15 22:00 | NUR ---
pt.assessed.pt.presents quiescent affect;calm,resting.no requests posited@this hour.pt.capable to reposition self.bsc inspected clean w/in access of the pt.call light/telephone w/in access of the pt.
--- NOTE | 2021-09-16 | NUR ---
pt.assessed.v/s assessed values wnl.pt.requested medication;ativan;i have administered ativan;1mg ivp.pt.requested snacks/juices.provided.i have attended to the bsc cleaned placed w/in access of the pt.pt.capable to reposition self.call light/telephone w/in access of the pt.
[2021-09-16] MEDS: HYDROmorphone 2 MG/ML VIAL IV PRN ×8 (00:08→23:31)
[2021-09-16] MEDS: LORazepam 2 MG/ML VIAL IV PRN ×6 (00:23→21:09)
--- NOTE | 2021-09-16 00:30 | NUR ---
pt.requested medication;pain.i have administered dilaudid:2mg ivp.to assess the efficacy of the pain medication per pain mgx policy.
[2021-09-16] MEDS: VANCOMYCIN HCL 1 GM/NS PREMIX 250 ML IV SCH ×2 (02:00→14:00)
--- NOTE | 2021-09-16 02:00 | NUR ---
pt.assessed.pt.presents quiescent affect;calm,somnolent.per flacc pain mgx pt.absent facial grimaces/body posturing.pt.capable to reposition self.pt.had refused the administration vancomycin 0200a dose.pt.stated she presents allergy to vancomycin.call light/telephone w/in access of the pt.
--- NOTE | 2021-09-16 03:00 | NUR ---
pt.requested medication pain;dilaudid.i have administered dilaudid;2mg ivp.to assess the efficacy g of thpi nmediactp perapin mgx polirtol.
--- NOTE | 2021-09-16 04:00 | NUR ---
pt.assessed.pt.requested medication;ativan.i have administered ativan:1mg ivp.pt.requested ice chips provided.i have attended to the bsc.cleaned w/in access of the pt.i have takened the photos wounds;placed the order juli;ellis;rn,dietary,air matters per wound care protocol.call light/telephone w/in access of the pt.
[2021-09-16] MEDS: INSULIN REGULAR, HUMAN 100 UNITS/ML, 10 ML VIAL (humuLIN R) SUBCUT PRN (06:06)
--- NOTE | 2021-09-16 06:28 | NUR ---
pt.assessed.pt.requested medication;pain.dialudid:2mg ivp administered.to assess the efficacy of the pain medication per pain mgx protocol.blood glucose assessed value:370mg/dl.insulin;regular;10-u administered.pt.requested coffee.pt.capable to reposition self.call light/telephone w/iaccess of thpt.
[2021-09-16 08:00] VITALS: BP_SYST 174
[2021-09-16 08:07] LABS: AFP, TUMOR MARKER 2.3 ng/mL (0.0-8.3)
--- NOTE | 2021-09-16 08:10 | NUR ---
OPEN SHIFT REPORT RECV'D PT. AND REPORT FROM 11P- NURSE. PT. AAOX4 LYING DOWN IN BED C/O 05/15 B/L LOWER EXT. PAIN. PT. WILL RECEIVE DILAUDID 2MG INJECTION IN ABOUT AN HOUR FOR PAIN. CLEAR B/L LUNG SOUNDS W/ HR RRR. NORMAL BS X4 QUADS. PT. VANCO ABT IV ORDERED, BUT PT. STATED ALLERGIC TO VANCO. PT. STATED CAN TAKE ZOSYN ABT. WILL CALL ID FOR NEW ABT ORDER. INFORMED APPRENTICE/LINEMAN, ANTONIA, CREAM NEEDS TO BE ORDERED FOR DRY, CRACKED, BLISTERED SKIN ON B/L LOWER EXTREMITIES. ISHAN IV INTACT AND PATENT W/ NO S/S INFECTION OR INFILTRATION. ALL SAFETY PRECAUTIONS MAINTAINED W/ BED IN LOWEST POSITION AND CALL GOMEZ WITHIN REACH.
[2021-09-16 08:54] VITALS: BP_SYST 143
[2021-09-16] MEDS: LEVOTHYROXINE SODIUM 0.125 MG TABLET PO SCH (09:00)
[2021-09-16] MEDS ORDERED: LIDOCAINE 1%, 20 ML MDV 20 ML ONE (09:27)
--- NOTE | 2021-09-16 11:00 | NUR ---
PT. C/O 7-8 PAIN IN B/L LOWER EXTREMITIES. MEDICATED W/ DILAUDID 2MG/ML VIAL AT 0918. REASSESSED AT 0950, AND PT. STATED STILL HAD PAIN. WILL ADMINISTER PAIN MEDICATION WHEN DUE. IN [facility] AT [facility] CALLED THIS MORNING INQUIRING IF PT. WILL BE COMING TO FACILITY TODAY. INFORMED THAT PT. WILL NOT BE D/C TODAY D/T GOING FOR LIVER BIOPSY AND NO D/C ORDERS OF YET. LPT. RETURNED FROM LIVER BIOPSY AT 1040. DR. GEORGES CALLED AT 1025 W/ NEW ORDERS TO DO VITALS Q 15 MINS FOR FIRST 4 HRS. THEN AFTER VITALS Q 30 MINS X2 HRS. PT. WAS CRYING STATING "THE PATHOLOGIST WAS IN THE ROOM WHILE I GOT BIOPSY AND SAID I HAVE CANCER." WILL CONTINUE TO MONITOR PT.
[2021-09-16] MEDS: DOCUSATE SODIUM 100 MG CAPSULE PO SCH (11:13)
[2021-09-16] MEDS: PREGABALIN 75 MG CAPSULE (LYRICA) PO SCH ×2 (11:13→20:14)
[2021-09-16] MEDS: FLUoxetine HCL 20 MG CAPSULE (PROzac) PO SCH (11:14)
[2021-09-16] MEDS: ALLOPURINOL 300 MG TABLET (ZYLOPRIM) PO SCH (11:15)
[2021-09-16] MEDS: LISINOPRIL 10 MG TABLET (PRINIVIL) PO SCH (11:15)
[2021-09-16] MEDS: DICYCLOMINE HCL 10 MG CAPSULE PO SCH ×3 (11:15→20:13)
[2021-09-16] MEDS: PHENYTOIN 100 MG CAPSULE PO SCH ×3 (11:16→20:14)
[2021-09-16] MEDS: POLYETHYLENE GLYCOL 3350, 17 GM/ POWD.PACK PO SCH (11:17)
--- NOTE | 2021-09-16 13:36 | NUR ---
CALLED DR. LOW'S OFFICE TO OBTAIN NEW ORDERS FOR PT. SPOKE W/ ANSWER SERVICE AT 1330 WHO STATED WILL PAGE AWAITING CALL BACK AT THIS TIME.
[2021-09-16] MEDS: ONDANSETRON HCL 4 MG/2 ML VIAL IVP PRN (15:54)
[2021-09-16] MEDS: ACETAMINOPHEN 325 MG TABLET PO PRN (15:55)
--- NOTE | 2021-09-16 16:49 | NUR ---
CONSULTATION PAGED/CALLED Reason for Consultation: [] LIVER CA Person Who was Notified: [] WENDY Consulting Physician: [] DR MICHAEL, A Grinder Operator Specialty: [] ONCO/RHIANNA Ordering Physician: [] RIYA GRACIA/DR FLYNN
[2021-09-16 17:54] VITALS: BP_SYST 152
[2021-09-16] MEDS: CLINDAMYCIN HCL 150 MG CAPSULE PO SCH ×2 (18:00→23:53)
--- NOTE | 2021-09-16 19:20 | NUR ---
CLOSE SHIFT REPORT ENDORSED PT. AND GAVE REPORT TO ONCOMING 11P-7A NURSE. VS TAKEN ORDERED BY DR. GEORGES AFTER LIVER BIPOSY FOR Q 15MINS X4 HOURS. THEN Q 30 MINS X2 HRS. PT. C/O OF CHRONIC B/L LOWER EXT PAIN AND ANXIETY THROUGHOUT SHIFT. MEDICATED WITH DILAUDID 2MG/ML VIAL IVP AT 0918, 1216, AND 1554. PT. STATED MEDICATION WAS NOT EFFECTIVE. ALSO MEDICATED WITH ZOFRAN AT 1554. ACCUCHECK AT 1700 310. PT. RECEIVED NO COVERAGE D/T NO ORDER. ALL SAFETY PRECAUTIONS MAINTAINED THROUGHOUT SHIFT.
--- NOTE | 2021-09-16 19:25 | NUR ---
OPENING NOTES RECEIVED PATIENT RESTING IN BED, NO SIGNS OF DISTRESS NOTED. CALL LIGHT WITHIN REACH, PATIENT DEMONSTRATES PROPER CALL LIGHT USAGE, BED ALARM REFUSED, BED AT LOWEST POSITION, BED LOCKED. FALL, RESPIRATORY, ASPIRATION AND SAFETY PRECAUTIONS IN PLACE. DISCUSSED PLAN OF CARE WITH PATIENT. WILL CONTINUE TO MONITOR.
[2021-09-16 20:00] VITALS: BP_SYST 147
[2021-09-16] MEDS: traZODone HCL 50 MG TABLET (DESYREL) PO SCH (20:15)
[2021-09-16] MEDS: NORTRIPTYLINE HCL 25 MG CAPSULE PO SCH (20:15)
[2021-09-16] MEDS: DONEPEZIL HCL 5 MG TABLET (ARICEPT) PO SCH (20:16)
[2021-09-16] MEDS: CLOTRIMAZOLE/BETAMET DIPROP 15 GM TUBE TP SCH (21:00)
[2021-09-16] MEDS: AMMONIUM LACTATE 12%, 400 ML LOTION TP SCH (21:00)
--- NOTE | 2021-09-16 21:40 | NUR ---
SPOKE TO DR. STANFORD, EXPLAINED THAT VITALS ARE STABLE, PATIENT STATES THAT SHE WANTS TO GO HOME NOW. EXPLAINED THAT PATIENT'S BLADDER SCANNER IS 222ML BEFORE VOIDING, PATIENT STATES SHE WILL WALK BEFORE GOING TO THE RESTROOM AT THIS TIME. PATIENT HAD VOIDED AT SMALL AMOUNT AT PACU, PATIENT STATED THAT IT WAS MORE THAN THE AMOUNT THEY HAD COLLECTED. MD ORDERED TO DISCHARGE PATIENT HOME TONIGHT, MD ORDERED NO NEED TO WAIT FOR THE PATIENT TO VOID. WILL NOTIFY PATIENT. Addendum: 09/17/21 at 0551 by Latricia Deras RN WRONG PATIENT. PLEASE DISREGARD.
[2021-09-16] MEDS: MELATONIN 5 MG TABLET PO PRN (23:24)
[2021-09-16] MEDS: DIPHENHYDRAMINE HCL 50 MG CAPSULE PO PRN (23:50)
[2021-09-17 00:37] VITALS: BP_SYST 164
--- NOTE | 2021-09-17 01:45 | NUR ---
PATIENT PROVIDED ICE CHIPS, CRACKERS, WARM WATER. PATIENT STATES NO OTHER NEEDS. WILL CONTINUE TO MONITOR.
[2021-09-17] MEDS: VANCOMYCIN HCL 1 GM/NS PREMIX 250 ML IV SCH (02:00)
[2021-09-17] MEDS: HYDROmorphone 2 MG/ML VIAL IV PRN ×8 (02:52→21:52)
[2021-09-17] MEDS: LORazepam 2 MG/ML VIAL IV PRN ×5 (04:20→21:45)
[2021-09-17] MEDS: CLINDAMYCIN HCL 150 MG CAPSULE PO SCH ×4 (06:00→23:59)
[2021-09-17] MEDS: INSULIN REGULAR, HUMAN 100 UNITS/ML, 10 ML VIAL (humuLIN R) SUBCUT PRN (06:15)
--- NOTE | 2021-09-17 06:36 | NUR ---
CLOSING NOTES PATIENT RESTING IN BED, NO SIGNS OF DISTRESS NOTED. CALL LIGHT WITHIN REACH, PATIENT USED CALL LIGHT THROUGHOUT SHIFT, BED ALARM REFUSED, BED AT LOWEST POSITION, BED LOCKED. FALL, RESPIRATORY, ASPIRATION AND SAFETY PRECAUTIONS IN PLACE THROUGHOUT SHIFT. WILL ENDORSE CARE TO ONCOMING SHIFT.
[2021-09-17 07:45] VITALS: BP_SYST 148
[2021-09-17] MEDS: CLOTRIMAZOLE/BETAMET DIPROP 15 GM TUBE TP SCH ×2 (09:00→21:19)
[2021-09-17] MEDS: POLYETHYLENE GLYCOL 3350, 17 GM/ POWD.PACK PO SCH (09:00)
[2021-09-17] MEDS: AMMONIUM LACTATE 12%, 400 ML LOTION TP SCH ×2 (09:00→21:19)
[2021-09-17] MEDS: LISINOPRIL 10 MG TABLET (PRINIVIL) PO SCH (09:00)
[2021-09-17] MEDS: DICYCLOMINE HCL 10 MG CAPSULE PO SCH ×3 (09:19→21:17)
[2021-09-17] MEDS: LEVOTHYROXINE SODIUM 0.125 MG TABLET PO SCH (09:19)
[2021-09-17] MEDS: PHENYTOIN 100 MG CAPSULE PO SCH ×3 (09:19→21:17)
[2021-09-17] MEDS: DOCUSATE SODIUM 100 MG CAPSULE PO SCH ×2 (09:19→09:29)
[2021-09-17] MEDS: PREGABALIN 75 MG CAPSULE (LYRICA) PO SCH ×2 (09:20→21:17)
[2021-09-17] MEDS: FLUoxetine HCL 20 MG CAPSULE (PROzac) PO SCH (09:20)
[2021-09-17] MEDS: ALLOPURINOL 300 MG TABLET (ZYLOPRIM) PO SCH (09:38)
[2021-09-17 12:00] VITALS: BP_SYST 143
[2021-09-17] MEDS: DIPHENHYDRAMINE HCL 50 MG CAPSULE PO PRN (12:17)
[2021-09-17] MEDS: ACETAMINOPHEN 325 MG TABLET PO PRN ×2 (12:18→18:43)
--- NOTE | 2021-09-17 14:10 | NUR ---
PATIENT CALLED REPORTING SHE CUT HER LEFT FOOT. ON EXAMINATION, A SKIN TEAR WAS NOTED. OFFERED TO HAVE WOUND CLEANSE AND DRESSED BUT PATIENT REFUSED. PATIENT REFUSED TO BE SEEN BY WOUND CARE NURSE ANTONIA TODAY.
[2021-09-17 15:30] VITALS: BP_SYST 141
--- NOTE | 2021-09-17 18:43 | NUR ---
REFUSED INSULIN COVERAGE. GLUCOSE READING WAS 265.
[2021-09-17 19:00] VITALS: BP_SYST 125
--- NOTE | 2021-09-17 19:29 | NUR ---
PT HAS BEEN STABLE THE WHOLE SHIFT, GIVEN PAIN, ANXIETY MEDS. PT RFUSED DRESSING CHANGE ON HER NEW LEFT SKIN TEAR AND R. ELBOW SCRATCH. REFUSED INSULIN COVERAGE FOR BS OF 265. ENDORSED TO NIGHT NURSE.
[2021-09-17 20:00] VITALS: BP_SYST 125
--- NOTE | 2021-09-17 20:07 | NUR ---
RECIEVED PT FROM am NURSE. PT AOX4 AMBULATORY VSS, PT WANTS PAIN AND ANXIETY MEDICATIONS ON THE HOUR OF DUE. PT RFUSED DRESSING CHANGE ON HER NEW LEFT SKIN TEAR AND R. ELBOW SCRATCH. REFUSED INSULIN COVERAGE FOR BS OF 265, IN THE AM. PT IS AWARE OF CA RESULTED. LIVER BIOPSY IS STILL PENDING. PLAN IS TO DC TO SNF
--- NOTE | 2021-09-17 21:00 | NUR ---
pt.re-assigned i am to provide pt.care for the remainder of the shift.pt.had requested medication;pain.i have administered dilaudid: 2mg ivp.to assesse the efficacy of the pain medication per pain mgx protocol.2100pmedications administered.pt.capable to ingest th po medications w/out difficulty. pt.requested snacks/juices provided.bsc clean w/in access of the pt.capable to reposition self.call light/telephone w/in access of the pt.
--- NOTE | 2021-09-17 21:04 | NUR ---
PER CHARGE NURSE. PT REQUEST A NEW RN ENDORSE TO [facility].2100
[2021-09-17] MEDS: DONEPEZIL HCL 5 MG TABLET (ARICEPT) PO SCH (21:16)
[2021-09-17] MEDS: traZODone HCL 50 MG TABLET (DESYREL) PO SCH (21:17)
[2021-09-17] MEDS: NORTRIPTYLINE HCL 25 MG CAPSULE PO SCH (21:18)
--- NOTE | 2021-09-17 21:45 | NUR ---
pt.requested medication;ativan.i have administered ativan:1mg ivp.pt.requested snacks provided.bsc attended to w/in access of the pt.call light/telephone w/in access of the pt.
--- NOTE | 2021-09-17 22:30 | NUR ---
pt.assessed.pt.presents quiescent affect;calm,resting.bsc w/in access of the pt.pt.capable to reposition self.call light/telephone w/in access of the pt.
--- NOTE | 2021-09-18 | NUR ---
pt.assessed.v/s assessed values wnl.pt.requested medication;pain.i have administered dilaudid;2mg ivp.to assess the efficacy of the pain medication per pain mgx protocol.i have administered cleocin abx po.pt.requested snacks provided.bsc attended to. w/in access of the pt.pt.capable to reposition self.call light/telephone w/in access of the pt.
[2021-09-18] MEDS: HYDROmorphone 2 MG/ML VIAL IV PRN ×6 (00:02→21:22)
[2021-09-18 00:31] VITALS: BP_SYST 138
--- NOTE | 2021-09-18 01:15 | NUR ---
pt.requested medication;ativan.i have administered ativan:1mg ivp.pt.requested snacks provided.call light/telephone w/in access of the pt.
[2021-09-18] MEDS: LORazepam 2 MG/ML VIAL IV PRN ×7 (01:21→22:37)
--- NOTE | 2021-09-18 02:00 | NUR ---
pt.assessed.pt.presents quiescent affect;calm,somnolent.per flacc pain mgx pt.absent facial grimaces/body posturing. pt.capable to reposition self.bsc w/in access of the pt.call light/telephone w/in access of the pt.
--- NOTE | 2021-09-18 03:15 | NUR ---
pt.requested medication;pain.i have administered dilaudid:2mg ivp.to assess the efficacy of the pain medication per pain mgx protocol.
[2021-09-18] MEDS: CLINDAMYCIN HCL 150 MG CAPSULE PO SCH ×3 (06:09→17:18)
[2021-09-18] MEDS: INSULIN REGULAR, HUMAN 100 UNITS/ML, 10 ML VIAL (humuLIN R) SUBCUT PRN ×2 (06:13→21:36)
[2021-09-18] MEDS: FLUoxetine HCL 20 MG CAPSULE (PROzac) PO SCH (08:37)
[2021-09-18] MEDS: LISINOPRIL 10 MG TABLET (PRINIVIL) PO SCH (08:39)
[2021-09-18] MEDS: PHENYTOIN 100 MG CAPSULE PO SCH ×3 (08:39→21:24)
[2021-09-18] MEDS: DICYCLOMINE HCL 10 MG CAPSULE PO SCH ×3 (08:39→21:24)
[2021-09-18] MEDS: LEVOTHYROXINE SODIUM 0.125 MG TABLET PO SCH (08:40)
[2021-09-18] MEDS: POLYETHYLENE GLYCOL 3350, 17 GM/ POWD.PACK PO SCH (08:40)
[2021-09-18] MEDS: DOCUSATE SODIUM 100 MG CAPSULE PO SCH (08:40)
[2021-09-18] MEDS: PREGABALIN 75 MG CAPSULE (LYRICA) PO SCH ×2 (08:40→21:24)
[2021-09-18] MEDS: ALLOPURINOL 300 MG TABLET (ZYLOPRIM) PO SCH (09:00)
[2021-09-18] MEDS: AMMONIUM LACTATE 12%, 400 ML LOTION TP SCH ×2 (09:00→21:29)
[2021-09-18] MEDS: CLOTRIMAZOLE/BETAMET DIPROP 15 GM TUBE TP SCH ×2 (09:00→21:29)
[2021-09-18 12:00] VITALS: BP_SYST 144
[2021-09-18] MEDS: ONDANSETRON HCL 4 MG/2 ML VIAL IVP PRN ×2 (13:21)
[2021-09-18 16:00] VITALS: BP_SYST 192
[2021-09-18 20:00] VITALS: BP_SYST 146
[2021-09-18] MEDS: NORTRIPTYLINE HCL 25 MG CAPSULE PO SCH (21:24)
[2021-09-18] MEDS: DONEPEZIL HCL 5 MG TABLET (ARICEPT) PO SCH (21:24)
[2021-09-18] MEDS: traZODone HCL 50 MG TABLET (DESYREL) PO SCH (22:36)
[2021-09-19] MEDS: CLINDAMYCIN HCL 150 MG CAPSULE PO SCH ×4 (01:05→17:33)
[2021-09-19] MEDS: HYDROmorphone 2 MG/ML VIAL IV PRN ×7 (01:44→21:59)
[2021-09-19 01:46] VITALS: BP_SYST 129
[2021-09-19] MEDS: LORazepam 2 MG/ML VIAL IV PRN ×5 (02:48→23:51)
[2021-09-19] MEDS: INSULIN REGULAR, HUMAN 100 UNITS/ML, 10 ML VIAL (humuLIN R) SUBCUT PRN ×2 (06:56→17:35)
--- NOTE | 2021-09-19 07:30 | NUR ---
OPENING NOTES: RECEIVED REPORT FROM BULK TRUCK DRIVER NURSE. PATIENT IS AWAKE SITTING IN BED. TOLERATED OXYGEN ON ROOM AIR WITH NO DISTRESS NOTED. IV LINE PATENT AND INTACT WITH NO INFILTRATION NOTED. PATIENT STABLE AT THIS TIME. SAFETY, FALL, AND ASPIRATION PRECAUTIONS ARE IN PLACE. BED LOCKED IN LOWEST POSITION AND CALL LIGHT IN REACH. WILL CONTINUE TO MONITOR FOR ANY CHANGES.
[2021-09-19 08:00] VITALS: BP_SYST 144
[2021-09-19] MEDS: DOCUSATE SODIUM 100 MG CAPSULE PO SCH (09:00)
[2021-09-19] MEDS: LISINOPRIL 10 MG TABLET (PRINIVIL) PO SCH (09:00)
[2021-09-19] MEDS: LEVOTHYROXINE SODIUM 0.125 MG TABLET PO SCH (09:45)
[2021-09-19] MEDS: POLYETHYLENE GLYCOL 3350, 17 GM/ POWD.PACK PO SCH (09:45)
[2021-09-19] MEDS: ALLOPURINOL 300 MG TABLET (ZYLOPRIM) PO SCH (09:47)
[2021-09-19] MEDS: DICYCLOMINE HCL 10 MG CAPSULE PO SCH ×3 (09:47→22:03)
[2021-09-19] MEDS: PREGABALIN 75 MG CAPSULE (LYRICA) PO SCH ×2 (09:48→22:03)
[2021-09-19] MEDS: PHENYTOIN 100 MG CAPSULE PO SCH ×3 (09:49→22:06)
[2021-09-19] MEDS: FLUoxetine HCL 20 MG CAPSULE (PROzac) PO SCH (09:49)
[2021-09-19] MEDS: AMMONIUM LACTATE 12%, 400 ML LOTION TP SCH ×2 (09:50→22:06)
[2021-09-19] MEDS: CLOTRIMAZOLE/BETAMET DIPROP 15 GM TUBE TP SCH ×2 (09:50→22:06)
[2021-09-19 12:00] VITALS: BP_SYST 140
--- NOTE | 2021-09-19 12:28 | NUR ---
CM: Liver CA bx result is pending. DC to snf if cleared by GI.
[2021-09-19 16:00] VITALS: BP_SYST 142
--- NOTE | 2021-09-19 18:30 | NUR ---
CLOSING NOTES: PATIENT IS AWAKE SITTING IN BED. TOLERATED OXYGEN ON ROOM AIR WITH NO DISTRESS NOTED. IV LINE PATENT AND INTACT WITH NO INFILTRATION NOTED. PATIENT STABLE AT THIS TIME. SAFETY, FALL, AND ASPIRATION PRECAUTIONS REMAINED IN PLACE. BED LOCKED IN LOWEST POSITION AND CALL LIGHT IN REACH. WILL ENDORSE PATIENT CARE TO ONCOMING TABLE SETTER NURSE.
[2021-09-19 19:00] VITALS: BP_SYST 126
--- NOTE | 2021-09-19 19:00 | NUR ---
PATIENT RECEIVED IN BED AWAKE SITTING IN BED SEMI-FOWLERS. TOLERATED OXYGEN ON ROOM AIR, ALERT AND ORIENTED X 3. PATIENT EDUCATED TO NURSING PLAN OF CARE, FALL AND SAFETY INTERVENTIONS AND MEDICATION REGIMEN. 20G IV LINE TO RAC PATENT AND INTACT WITH NO INFILTRATION NOTED. PATIENT STABLE AT THIS TIME. SAFETY, FALL, AND ASPIRATION PRECAUTIONS ARE IN PLACE. BED LOCKED IN LOWEST POSITION AND CALL LIGHT IN REACH. WILL CONTINUE TO MONITOR FOR ANY CHANGES. VITAL SIGNS STABLE, NO ACUTE DISTRESS NOTED.
[2021-09-19] MEDS: traZODone HCL 50 MG TABLET (DESYREL) PO SCH (22:02)
[2021-09-19] MEDS: DONEPEZIL HCL 5 MG TABLET (ARICEPT) PO SCH (22:03)
[2021-09-19] MEDS: NORTRIPTYLINE HCL 25 MG CAPSULE PO SCH (22:05)
--- NOTE | 2021-09-20 | NUR ---
PATIENT SLEEPING DURING ROUNDING, EASILY AROUSED. COMPLIANT WITH CARE. RESPIRATIONS EVEN AND UNLABORED. ACYANOTIC. SKIN WARM AND DRY. FALL AND SAFETY MEASURES ONGOING. NO ACUTE DISTRESS NOTED.
[2021-09-20] MEDS: CLINDAMYCIN HCL 150 MG CAPSULE PO SCH ×4 (00:26→17:37)
[2021-09-20] MEDS: HYDROmorphone 2 MG/ML VIAL IV PRN ×5 (01:05→14:37)
[2021-09-20 04:00] VITALS: BP_SYST 136
[2021-09-20] MEDS: LORazepam 2 MG/ML VIAL IV PRN ×4 (07:22→21:11)
[2021-09-20 08:00] VITALS: BP_SYST 155
--- NOTE | 2021-09-20 08:00 | NUR ---
OPENING NOTES AWAKE AND ORIENTED. NO SHORTNESS OF BREATH ON ROOM AIR. COMPLAINED OF 9/10 PAIN ON THE SHOULDERS, BACK, LEG AND HEAD. REQUESTED FOR DILAUDID. WILL MEDICATE. PLAN OF CARE DISCUSSED WITH PATIENT. REFUSED TO SHOW RECTAL ABSCESS AT THIS TIME. SAFETY CHECKS DONE. CALL LIGHT WITHIN REACH. WILL MONITOR.
[2021-09-20] MEDS: LEVOTHYROXINE SODIUM 0.125 MG TABLET PO SCH (08:19)
[2021-09-20] MEDS: FLUoxetine HCL 20 MG CAPSULE (PROzac) PO SCH (08:19)
[2021-09-20] MEDS: DICYCLOMINE HCL 10 MG CAPSULE PO SCH ×3 (08:19→21:26)
[2021-09-20] MEDS: PHENYTOIN 100 MG CAPSULE PO SCH ×3 (08:24→21:28)
[2021-09-20] MEDS: PREGABALIN 75 MG CAPSULE (LYRICA) PO SCH ×2 (08:24→21:29)
[2021-09-20] MEDS: DOCUSATE SODIUM 100 MG CAPSULE PO SCH (08:24)
[2021-09-20] MEDS: LISINOPRIL 10 MG TABLET (PRINIVIL) PO SCH (08:25)
[2021-09-20] MEDS: POLYETHYLENE GLYCOL 3350, 17 GM/ POWD.PACK PO SCH (08:25)
[2021-09-20] MEDS: CLOTRIMAZOLE/BETAMET DIPROP 15 GM TUBE TP SCH ×2 (08:26→21:30)
[2021-09-20] MEDS: AMMONIUM LACTATE 12%, 400 ML LOTION TP SCH ×2 (08:27→21:30)
[2021-09-20] MEDS: ALLOPURINOL 300 MG TABLET (ZYLOPRIM) PO SCH (08:30)
--- NOTE | 2021-09-20 11:20 | NUR ---
PAIN COMPLAINED OF 9/10 PAIN ON THE HEAD AND BACK. MEDICATED.
[2021-09-20 11:40] VITALS: BP_SYST 132
--- NOTE | 2021-09-20 12:30 | NUR ---
ANXIETY PATIENT REQUESTED FOR ATIVAN FOR ANXIETY. MEDICATED. ALSO ADMINISTERED ORAL ANTIBIOTIC ORDERED. SAFETY CHECKS DONE. CALL LIGHT WITHIN REACH.
--- NOTE | 2021-09-20 14:33 | NUR ---
CM: Per [facility], there is bed available for pt today room # 21B. The discharge is pending dr. Boris fung order.
--- NOTE | 2021-09-20 14:40 | NUR ---
PAIN PATIENT COMPLAINED OF 10/10 PAIN ON THE SHOULDERS, BACK, ABDOMEN AND LEG. PATIENT STILL REFUSED TO SHOW HER RECTAL ABSCESS. SAFETY CHECKS DONE. WILL MONITOR.
[2021-09-20] MEDS ORDERED: HYDROmorphone 2 MG TAB PO PRN (16:00)
--- NOTE | 2021-09-20 16:00 | NUR ---
PATIENT DOES NOT WANT TO BE DISCHARGED EXPLAINED TO THE PATIENT THAT SHE WILL GO TO [facility] PER DR. FLYNN'S ORDER. PATIENT STARTED YELLING AT NURSE SAYING THAT SHE WANTS HER PAIN MEDICATIONS READY AT [facility] WHEN SHE GETS DISCHARGED. SHE SAID THAT IF NOT, SHE WILL 'BUY A GUN AND SHOOT HERSELF OR PAY SOMEONE TO SHOOT HER'. EXPLAINED TO PATIENT THAT [facility] WILL HAVE IT READY FOR HER. PEOPLE FROM [facility] CAME TO PATIENT'S ROOM AND EXPLAINED TO HER THE DISCHARGE PROCESS BUT PATIENT REFUSED TO LISTEN.
--- NOTE | 2021-09-20 16:30 | NUR ---
CALLED CALLED DR. FLYNN TO REPORT PATIENT'S REFUSAL TO DISCHARGE BUT HE DID NOT ANSWER. THE REPRESENTATIVES FROM [facility] ALSO TRIED TO CALL DR. FLYNN FOR HIM TO APPROVE THE DILAUDID BUT THEY DID NOT GET A RESPONSE.
[2021-09-20 16:54] VITALS: BP_SYST 141
[2021-09-20] MEDS: HYDROmorphone 2 MG/ML VIAL IVP PRN ×2 (17:25→21:15)
--- NOTE | 2021-09-20 18:55 | NUR ---
CLOSING NOTES RESTING. IV MIDLINE INTACT. REFUSED DRESSING CHANGE FOR NOW. ALL NEEDS MET THROUGHOUT SHIFT. SAFETY CHECKS DONE. WILL ENDORSE TO NIGHT NURSE.
[2021-09-20 19:00] VITALS: BP_SYST 130
[2021-09-20] MEDS: traZODone HCL 50 MG TABLET (DESYREL) PO SCH (21:28)
[2021-09-20] MEDS: NORTRIPTYLINE HCL 25 MG CAPSULE PO SCH (21:30)
[2021-09-20] MEDS: DONEPEZIL HCL 5 MG TABLET (ARICEPT) PO SCH (21:30)
[2021-09-21] MEDS: HYDROmorphone 2 MG/ML VIAL IVP PRN ×5 (01:24→16:38)
[2021-09-21] MEDS: LORazepam 2 MG/ML VIAL IV PRN ×4 (01:25→17:49)
[2021-09-21 01:34] VITALS: BP_SYST 159
[2021-09-21] MEDS: CLINDAMYCIN HCL 150 MG CAPSULE PO SCH ×4 (01:55→18:00)
[2021-09-21 04:00] VITALS: BP_SYST 140
[2021-09-21 08:00] VITALS: BP_SYST 151
--- NOTE | 2021-09-21 08:00 | NUR ---
OPENING NOTES ASLEEP. NO SIGN OF DISTRESS. SAFETY CHECKS DONE. CALL LIGHT WITHIN REACH.
--- NOTE | 2021-09-21 08:13 | NUR ---
Nutrition F/U Admitting Diagnosis: Cellulitis BLE Medical History Comment: Pt w/: T2DM, HTN, Asthma, Seizure, Chronic pain, Depression, Hx of CHF, COPD per MD notes. 09/21 MD notes: possible psychosis SARS-CoV-2 Ag rapid 09/07 Negative Subjective Information: LATE ENTRY d/t high pt load 09/20. Nutrition consult for Diabetic, wounds, lbs received. Pt was seen 09/20 (late entry d/t high pt load). Pt was seen for f/u and d/t nursing staff c/o pt requesting for additional food items d/t dislike to meals delivered. Pt was seen sitting up in bed, RD observed a stack of crackers at bedside most likely pt was having as snacks in between meals. Pt reported that she does not eat what she gets and requested for menu selection. charge out clerk notified. Pt cursed at this RD toward the end of our conversation because she stated that she has been treated like crap over the weekend. Per appliance parts counter clerk, pt requests for one thing and when she receives it she wound say "I don't eat that". Pt has been altering her statements for food requests to the kitchen then complains about it. Per EMR review, Liver cancer biopsy result is pending and discharge planning once cleared by all consultants. Tevin scale: 19, no pressure injury, 2+ non-pitting edema to LE. Abdomen is soft and nondistended w/ active bowel sounds. PO intake meets at least 75% of est needs and pt may benefit from modification of diet order to [facility] heart healthy and John BID. Current Diet Order/Nutrition Support: Clear liquid diet x0 day Pertinent Medications: Synthroid, Colace, Desyrel, Os-teresa, Zofran, Dulcolax, Miralax, SSI, Melatonin Pertinent Labs 09/14 Na 136WNL, K 4.4, BG 261H, BUN 6L, Cre 0.54L- No new labs. 09/21 POC BG 361H Height: 5 feet, 8.00 inches Weight: 180 pounds/ 81.157966 kilograms (09/13) --stable Body Mass Index: 27.37 kg/m2 [place]/Adjusted Body Weight: 140#/ 64kg; Adj IBW 150#/ 68kg Estimated Energy Expenditure (kcals/day) 7791-2373 (25-30 kcal/kg IBW for Geriatric maintenance) Estimated Protein Required (g/day) 64-83 (1-1.3 gm/kg IBW for Geriatric maintenance) Estimated Fluid Required (l/day) Per MD (CHF) Problem/Etiology/Signs/Symptoms Inadequate protein-calorie intake r/t varied appetite AEB PO intake meets <75% of estimated needs x 4 days. (*improved) Altered nutrition related labs r/t endocrine dysfunction AEB elevated BG, DM. (*ongoing) Expected Outcomes/Goals Monitor appetite and PO intake w/ goal of pt meeting more than 75% of estimated nutritional needs, labs trending WNL, normal GI function, skin integrity/wt maintenance. Dietitian Recommendations *Recommend: [facility] Cardiac diet. Follow Up Mod Risk: F/U in 3-5 days Addendum: 09/21/21 at [address] additional RD rec: *Add john BID. BILLY RICKETTS
--- NOTE | 2021-09-21 08:20 | NUR ---
Dietitian Recommendations *Recommend: [facility] Cardiac diet. Please see Nutritional Assessment for details. BILLY RICKETTS Addendum: 09/21/21 at [address] additional BILLY rec: *Add radha BID. BILLY RICKETTS
[2021-09-21] MEDS ORDERED: CLOPIDOGREL BISULFATE 75 MG TABLET PO SCH (09:00)
[2021-09-21] MEDS: DOCUSATE SODIUM 100 MG CAPSULE PO SCH (09:00)
[2021-09-21] MEDS: POLYETHYLENE GLYCOL 3350, 17 GM/ POWD.PACK PO SCH (09:00)
[2021-09-21] MEDS: AMMONIUM LACTATE 12%, 400 ML LOTION TP SCH (09:00)
[2021-09-21] MEDS: LISINOPRIL 10 MG TABLET (PRINIVIL) PO SCH (09:00)
[2021-09-21] MEDS: PREGABALIN 75 MG CAPSULE (LYRICA) PO SCH (10:27)
[2021-09-21] MEDS: LEVOTHYROXINE SODIUM 0.125 MG TABLET PO SCH (10:28)
[2021-09-21] MEDS: ALLOPURINOL 300 MG TABLET (ZYLOPRIM) PO SCH (10:28)
[2021-09-21] MEDS: FLUoxetine HCL 20 MG CAPSULE (PROzac) PO SCH (10:28)
[2021-09-21] MEDS: DICYCLOMINE HCL 10 MG CAPSULE PO SCH ×2 (10:28→14:09)
[2021-09-21] MEDS: PHENYTOIN 100 MG CAPSULE PO SCH ×2 (10:29→14:04)
[2021-09-21] MEDS: CLOTRIMAZOLE/BETAMET DIPROP 15 GM TUBE TP SCH (10:30)
--- NOTE | 2021-09-21 10:30 | NUR ---
MED PASS PATIENT REFUSED COLACE, MIRALAX, PLAVIX AND LISINOPRIL AT THIS TIME. REQUESTED FOR DILAUDID AND ATIVAN. TOOK ALL SCHEDULED MEDICATIONS WELL. SAFETY CHECKS DONE.
--- NOTE | 2021-09-21 12:00 | NUR ---
ROUNDS PATIENT WANTS TO SLEEP AND DID NOT WANT TO BE DISTURBED.
[2021-09-21] MEDS: ACETAMINOPHEN 325 MG TABLET PO PRN (14:04)
--- NOTE | 2021-09-21 14:10 | NUR ---
ANXIETY PATIENT REQUESTED FOR A DOSE OF ATIVAN AND TYLENOL FOR PAIN. TOOK MEDICATIONS WELL.
[2021-09-21 14:40] LABS: BASOPHILS % (AUTO) 0.2 % (0.0-2.0); EOSINOPHILS # (AUTO) 0.3 K/uL (0.0-0.4); EOSINOPHILS % (AUTO) 3.6 % (0.0-4.0); HEMATOCRIT 33.6 % (36-48); HEMOGLOBIN 11.8 g/dL (12.0-16.0); LYMPHOCYTES # (AUTO) 2.4 K/uL (1.0-5.5); LYMPHOCYTES % (AUTO) 26.1 % (20.5-51.5); MEAN CORPUSCULAR HEMOGLOBIN 34 pg (27-31); MEAN CORPUSCULAR HGB CONC 35 % (32-36); MEAN CORPUSCULAR VOLUME 96 fL (79.0-98.0); MONOCYTES # (AUTO) 0.4 K/uL (0.0-1.0); MONOCYTES % (AUTO) 4.5 % (1.7-9.3); NEUTROPHILS # (AUTO) 6.1 K/uL (1.8-7.7); NEUTROPHILS % (AUTO) 65.6 % (40.0-70.0); PLATELET COUNT (AUTO) 190 K/uL (130-430); RED BLOOD CELL COUNT(AUTO) 3.51 MIL/uL (4.2-6.2); RED CELL DISTRIBUTION WIDTH 13.6 % (9.0-15.0); WHITE BLOOD COUNT (AUTO) 9.4 K/uL (4.8-10.8)
[2021-09-21 14:56] LABS: ALBUMIN 3.3 g/dL (3.4-4.8); CALCIUM 8.2 mg/dL (8.4-11.0); CREATININE 0.61 mg/dL (0.55-1.30); POTASSIUM 4.3 mmol/L (3.5-5.1); TOTAL BILIRUBIN 0.2 mg/dL (0.0-1.0)
--- NOTE | 2021-09-21 15:25 | NUR ---
CM: Confirmed with Braxton Clemons that the pain med prescription will be available at the facility by 7 pm. Pt made aware , she agreed with the transfer today for fern picker time at 6 pm. -- [facility] will arrange the ambulance, JES[facility]S Ventura aware.
--- NOTE | 2021-09-21 15:37 | NUR ---
Discharge Planning: DCP arranged transport with [facility] between 6:30pm-7:00pm to [place] P [phone] Rm 6A.
[2021-09-21 16:00] VITALS: BP_SYST 150
[2021-09-21 17:02] VITALS: BP_SYST 150
[2021-09-21] MEDS ORDERED: HYDROmorphone 2 MG/ML VIAL IVP ONE (17:30)
--- NOTE | 2021-09-21 17:55 | NUR ---
Patient is frustrated about today's transfer. Patient only put an X ingrid on the consent for transfer instead of her real signature out of frustration.
--- NOTE | 2021-09-21 18:40 | NUR ---
PT TRANSFERRED Report given to Ye[facility] at [facility]. Transfer packet with Transfer Orders and Medication Reconciliation form given to EMT with report. Exitcare provided. [facility] ID band removed, replaced with ID band with pt's name and . Patient refused for midline to be removed. Also refused Cleocin and Accu-check. Dr. Escalante called to verify orders for Dilaudid. All belongings sent with patient. Patient left floor via gurney escorted by EMT in no distress.
[2021-09-22 14:18] LABS: CEA 5.7 ng/mL (0.0-4.7)
== END 2021-09-21 18:40 | DRG 872 ==
LOC: SED 18:47 → SMU 09-07 06:40
PROVIDERS: ADMIT Internal Medicine; ATTEND Internal Medicine
PROC: 0FB13ZX Excision of Right Lobe Liver, Percutaneous Approach, Diagnostic (ICD-10-PCS; principal; 2021-09-13)
PROC: 0DB78ZX Excision of Stomach, Pylorus, Via Natural or Artificial Opening Endoscopic, Diagnostic (ICD-10-PCS; 2021-09-14)
PROC: 0DB98ZX Excision of Duodenum, Via Natural or Artificial Opening Endoscopic, Diagnostic (ICD-10-PCS; 2021-09-14)
PROC: 0DBK8ZZ Excision of Ascending Colon, Via Natural or Artificial Opening Endoscopic (ICD-10-PCS; 2021-09-14)
PROC: 0FB13ZX Excision of Right Lobe Liver, Percutaneous Approach, Diagnostic (ICD-10-PCS; 2021-09-16)
DX: A41.9 Sepsis, unspecified organism (principal); L03.116 Cellulitis of left lower limb; E22.2 Syndrome of inappropriate secretion of antidiuretic hormone; L03.115 Cellulitis of right lower limb; E66.01 Morbid (severe) obesity due to excess calories; E03.9 Hypothyroidism, unspecified; E11.51 Type 2 diabetes mellitus with diabetic peripheral angiopathy without gangrene; E78.5 Hyperlipidemia, unspecified; F17.210 Nicotine dependence, cigarettes, uncomplicated; F32.A Depression, unspecified; G40.909 Epilepsy, unspecified, not intractable, without status epilepticus; G47.30 Sleep apnea, unspecified; G89.4 Chronic pain syndrome; I11.0 Hypertensive heart disease with heart failure; I50.9 Heart failure, unspecified; J44.9 Chronic obstructive pulmonary disease, unspecified; K74.60 Unspecified cirrhosis of liver; K74.00 Hepatic fibrosis, unspecified; S40.811A Abrasion of right upper arm, initial encounter; X58.XXXA Exposure to other specified factors, initial encounter; Z96.651 Presence of right artificial knee joint; Z20.822 Contact with and (suspected) exposure to COVID-19; K57.30 Diverticulosis of large intestine without perforation or abscess without bleeding; K21.00 Gastro-esophageal reflux disease with esophagitis, without bleeding; K29.70 Gastritis, unspecified, without bleeding; K63.5 Polyp of colon; K64.8 Other hemorrhoids; M10.9 Gout, unspecified; Z86.718 Personal history of other venous thrombosis and embolism; Z90.49 Acquired absence of other specified parts of digestive tract; Z90.710 Acquired absence of both cervix and uterus; Z91.19 Patient's noncompliance with other medical treatment and regimen; Z88.2 Allergy status to sulfonamides; Z88.8 Allergy status to other drugs, medicaments and biological substances; Z91.040 Latex allergy status; Z88.0 Allergy status to penicillin; Z91.013 Allergy to seafood; Z79.4 Long term (current) use of insulin; Z79.899 Other long term (current) drug therapy; Y93.89 Activity, other specified; Y92.89 Other specified places as the place of occurrence of the external cause; Y99.8 Other external cause status; Z68.27 Body mass index [BMI] 27.0-27.9, adult
CPT/HCPCS: 36415; 47000; 76376; 80048; 80053; 82105; 82378; 82962; 83036; 83735; 84100; 84484; 85025; 85610-TC; 85730-TC; 87040-TC; 87081; 88305; 88307; 88312; 88313; 99285; J1170; J1815; J2001; J2060; J2405; J2543; J3370; J7050; Q0163

== ENCOUNTER 2022-02-01 18:14 | Inpatient (IN) | payer OTHER, BC, SELFPAY ==
[~2022-02-01] VITALS: Ht 152.4 cm; Wt 95.7 kg
[~2022-02-01 18:14] MED LIST changes: +FLEETMO RC; +POTA-197 PO; -POTA20TA83 PO
[2022-02-01 18:20] VITALS: BP_SYST 144
[2022-02-01] MEDS ORDERED: DIPHENHYDRAMINE INJ 50 MG/ML VIAL IM ONE (20:15)
[2022-02-01] MEDS ORDERED: ONDANSETRON 4 MG ODT TAB PO ONE (20:15)
[2022-02-01] MEDS ORDERED: MORPHINE 4 MG INJ. 4 MG/ML VIAL IM ONE ×2 (20:15→21:30)
[2022-02-01] MEDS ORDERED: DOXY100C PO (20:22)
[2022-02-01] MEDS ORDERED: ACET325T PO (20:22)
[2022-02-01] MEDS ORDERED: PHEN100C4 PO (20:22)
[2022-02-01] MEDS ORDERED: LEVO125T PO (20:22)
[2022-02-01] MEDS ORDERED: CLE150 PO (20:22)
[2022-02-01] MEDS ORDERED: PRO20 PO (20:22)
[2022-02-01] MEDS ORDERED: HUM10VIA SQ ×2 (20:22)
[2022-02-01] MEDS ORDERED: ALLO100T91 PO (20:22)
[2022-02-01] MEDS ORDERED: ASPI-862 PO (20:22)
[2022-02-01] MEDS ORDERED: CAT1PAT TD ×2 (20:22)
[2022-02-01] MEDS ORDERED: LACT1TAB21 PO (20:22)
[2022-02-01] MEDS ORDERED: NEU300 PO (20:22)
[2022-02-01] MEDS ORDERED: LIP20 PO (20:22)
[2022-02-01] MEDS ORDERED: FLUT16SP16 NS (20:22)
[2022-02-01] MEDS ORDERED: CYCL10TA24 PO (20:22)
[2022-02-01] MEDS ORDERED: FLEPED RC (20:22)
[2022-02-01] MEDS ORDERED: SIME80TA15 PO (20:22)
[2022-02-01] MEDS ORDERED: BISA10SU61 RC (20:22)
[2022-02-01] MEDS ORDERED: PSEU30TA36 PO (20:22)
[2022-02-01 20:28] LABS: BASOPHILS # (AUTO) 0.1 K/uL (0.0-0.2); BASOPHILS % (AUTO) 1.3 % (0.0-2.0); EOSINOPHILS # (AUTO) 0.2 K/uL (0.0-0.4); EOSINOPHILS % (AUTO) 2.6 % (0.0-4.0); HEMATOCRIT 30.2 % (36-48); HEMOGLOBIN 9.8 g/dL (12.0-16.0); LYMPHOCYTES # (AUTO) 2.9 K/uL (1.0-5.5); LYMPHOCYTES % (AUTO) 32.7 % (20.5-51.5); MEAN CORPUSCULAR HEMOGLOBIN 27 pg (27-31); MEAN CORPUSCULAR HGB CONC 33 % (32-36); MEAN CORPUSCULAR VOLUME 83 fL (79.0-98.0); MONOCYTES # (AUTO) 0.4 K/uL (0.0-1.0); MONOCYTES % (AUTO) 4.9 % (1.7-9.3); NEUTROPHILS # (AUTO) 5.1 K/uL (1.8-7.7); NEUTROPHILS % (AUTO) 58.5 % (40.0-70.0); PLATELET COUNT (AUTO) 263 K/uL (130-430); RED BLOOD CELL COUNT(AUTO) 3.63 MIL/uL (4.2-6.2); RED CELL DISTRIBUTION WIDTH 21.5 % (9.0-15.0); WHITE BLOOD COUNT (AUTO) 8.8 K/uL (4.8-10.8)
[2022-02-01 20:40] LABS: CALCIUM 9.5 mg/dL (8.4-11.0); CREATININE 0.67 mg/dL (0.55-1.30); POTASSIUM 4.5 mmol/L (3.5-5.1)
[2022-02-01 20:47] LABS: ALBUMIN 3.5 g/dL (3.4-4.8)
[2022-02-01 21:07] LABS: TOTAL BILIRUBIN 0.3 mg/dL (0.0-1.0)
[2022-02-01] MEDS ORDERED: NALOXONE HCL 0.4 MG/ML AMP (NARCAN) IVP PRN (21:30)
[2022-02-01] MEDS ORDERED: VANCOMYCIN HCL 1,000 MG in NS 250 ML IV ONE (21:30)
[2022-02-01] MEDS ORDERED: HYDROmorphone 2 MG TAB PO PRN (21:30)
[2022-02-01 22:27] LABS: PROTHROMBIN TIME 10.2 SECS (9.5-12.5)
[2022-02-01] MEDS ORDERED: MORPHINE 4 MG INJ. 4 MG/ML VIAL IVP ONE (22:30)
[2022-02-02] MEDS: ACETAMINOPHEN 325 MG TABLET PO PRN ×3 (01:18→16:16)
[2022-02-02] MEDS: DIPHENHYDRAMINE INJ 50 MG/ML VIAL IVP PRN ×4 (01:19→22:54)
[2022-02-02] MEDS: HYDROmorphone 1 MG/ML INJ. CARTRIDGE IVP PRN ×2 (04:04→08:25)
[2022-02-02 04:09] VITALS: BP_SYST 136
[2022-02-02 08:00] VITALS: BP_SYST 150
[2022-02-02] MEDS ORDERED: VANCOMYCIN HCL 1,000 MG in NS 250 ML IV SCH (09:00)
[2022-02-02] MEDS ORDERED: ONDANSETRON HCL 4 MG/2 ML VIAL IM PRN (10:15)
[2022-02-02] MEDS ORDERED: CYCLOBENZAPRINE HCL 10 MG TABLET (FLEXERIL) PO ONE (10:30)
[2022-02-02] MEDS: PIPERACILLIN/TAZO 3.375/DEX-IS 50 ML IV SCH ×3 (10:42→22:45)
[2022-02-02] MEDS: HYDROmorphone 2 MG/ML VIAL IVP PRN ×4 (10:43→22:53)
[2022-02-02] MEDS: INSULIN REGULAR, HUMAN 100 UNITS/ML, 10 ML VIAL (humuLIN R) SUBCUT PRN ×2 (11:12→17:21)
[2022-02-02 13:02] VITALS: BP_SYST 135
[2022-02-02] MEDS: CYCLOBENZAPRINE HCL 10 MG TABLET (FLEXERIL) PO SCH ×2 (15:10→22:45)
[2022-02-02 17:21] VITALS: BP_SYST 132
[2022-02-02] MEDS: ONDANSETRON HCL 4 MG/2 ML VIAL IVP PRN ×2 (19:06→22:53)
[2022-02-02 20:00] VITALS: BP_SYST 130
[2022-02-03 00:07] VITALS: BP_SYST 130
[2022-02-03] MEDS: HYDROmorphone 2 MG/ML VIAL IVP PRN ×5 (03:03→20:04)
[2022-02-03] MEDS: ACETAMINOPHEN 325 MG TABLET PO PRN ×2 (03:16→10:27)
[2022-02-03] MEDS: PIPERACILLIN/TAZO 3.375/DEX-IS 50 ML IV SCH ×3 (06:00→21:27)
[2022-02-03] MEDS: INSULIN REGULAR, HUMAN 100 UNITS/ML, 10 ML VIAL (humuLIN R) SUBCUT PRN ×3 (06:32→17:30)
[2022-02-03] MEDS: DIPHENHYDRAMINE INJ 50 MG/ML VIAL IVP PRN ×3 (06:33→16:31)
[2022-02-03] MEDS: ONDANSETRON HCL 4 MG/2 ML VIAL IVP PRN ×3 (06:33→20:05)
[2022-02-03 08:00] VITALS: BP_SYST 131
[2022-02-03] MEDS: CYCLOBENZAPRINE HCL 10 MG TABLET (FLEXERIL) PO SCH ×3 (10:24→21:25)
[2022-02-03 12:00] VITALS: BP_SYST 130
[2022-02-03] MEDS ORDERED: CYCLOBENZAPRINE HCL 10 MG TABLET (FLEXERIL) PO SCH (12:15)
[2022-02-03] MEDS ORDERED: ACETAMINOPHEN 325 MG TABLET PO SCH (12:15)
[2022-02-03] MEDS ORDERED: BISACODYL 10 MG/SUPPOSITORY RC PRN (12:15)
[2022-02-03] MEDS ORDERED: HYDROmorphone 2 MG/ML VIAL IVP PRN (12:30)
[2022-02-03] MEDS ORDERED: SODIUM PHOSPHATE,MONO-DIBASIC 133 ML ENEMA RC PRN (12:45)
[2022-02-03] MEDS: DICYCLOMINE HCL 10 MG CAPSULE PO SCH ×3 (13:30→21:27)
[2022-02-03] MEDS: LORazepam 1 MG TABLET PO PRN ×2 (14:52→21:37)
[2022-02-03] MEDS: PHENYTOIN 100 MG CAPSULE PO SCH ×2 (14:52→21:24)
[2022-02-03] MEDS ORDERED: GABAPENTIN 300 MG CAPSULE PO SCH (15:00)
[2022-02-03] MEDS: INSULIN NPH/REGULAR 70-30, 100 UNITS/ML, 10 ML VIAL SQ SCH (17:27)
[2022-02-03 20:10] VITALS: BP_SYST 154
[2022-02-03] MEDS: ATORVASTATIN 20 MG TABLET PO SCH (21:00)
[2022-02-03] MEDS: DOCUSATE SODIUM 100 MG CAPSULE PO SCH (21:24)
[2022-02-03] MEDS: traZODone HCL 50 MG TABLET (DESYREL) PO SCH (21:25)
[2022-02-03] MEDS: DONEPEZIL HCL 5 MG TABLET (ARICEPT) PO SCH (21:26)
[2022-02-03] MEDS: CILOSTAZOL 50 MG TABLET (PLETAL) PO SCH (21:26)
[2022-02-03] MEDS: PREGABALIN 75 MG CAPSULE (LYRICA) PO SCH (21:26)
[2022-02-04] MEDS: HYDROmorphone 2 MG/ML VIAL IVP PRN ×5 (00:16→20:47)
[2022-02-04] MEDS: DIPHENHYDRAMINE INJ 50 MG/ML VIAL IVP PRN ×2 (00:17→08:30)
[2022-02-04] MEDS: INSULIN REGULAR, HUMAN 100 UNITS/ML, 10 ML VIAL (humuLIN R) SUBCUT PRN ×4 (00:35→16:51)
[2022-02-04 00:45] VITALS: BP_SYST 143
[2022-02-04] MEDS: ACETAMINOPHEN 325 MG TABLET PO PRN ×2 (01:07→19:49)
[2022-02-04] MEDS: ONDANSETRON HCL 4 MG/2 ML VIAL IVP PRN ×2 (04:11→13:01)
[2022-02-04] MEDS: PIPERACILLIN/TAZO 3.375/DEX-IS 50 ML IV SCH ×3 (05:52→20:48)
[2022-02-04] MEDS: LORazepam 1 MG TABLET PO PRN ×2 (05:53→19:49)
[2022-02-04] MEDS: PHENYTOIN 100 MG CAPSULE PO SCH ×3 (05:53→21:04)
[2022-02-04] MEDS: LEVOTHYROXINE SODIUM 0.125 MG TABLET PO SCH (07:04)
[2022-02-04] MEDS: ASPIRIN 325 MG TABLET (ECOTRIN) PO SCH (08:31)
[2022-02-04] MEDS: DOCUSATE SODIUM 100 MG CAPSULE PO SCH ×2 (08:31→20:48)
[2022-02-04] MEDS: LISINOPRIL 10 MG TABLET (PRINIVIL) PO SCH (08:31)
[2022-02-04] MEDS: PREGABALIN 75 MG CAPSULE (LYRICA) PO SCH ×2 (08:32→20:49)
[2022-02-04] MEDS: CLOPIDOGREL BISULFATE 75 MG TABLET PO SCH (08:32)
[2022-02-04] MEDS: ALLOPURINOL 300 MG TABLET (ZYLOPRIM) PO SCH (08:32)
[2022-02-04] MEDS: CYCLOBENZAPRINE HCL 10 MG TABLET (FLEXERIL) PO SCH ×3 (08:32→20:48)
[2022-02-04] MEDS: FLUoxetine HCL 20 MG CAPSULE (PROzac) PO SCH (08:32)
[2022-02-04] MEDS: CILOSTAZOL 50 MG TABLET (PLETAL) PO SCH ×2 (08:32→20:49)
[2022-02-04] MEDS: SIMETHICONE 80 MG TAB.CHEW PO PRN ×2 (10:22→18:12)
[2022-02-04] MEDS: DICYCLOMINE HCL 10 MG CAPSULE PO SCH ×4 (10:22→20:49)
[2022-02-04 11:30] VITALS: BP_SYST 120
[2022-02-04] MEDS ORDERED: HYDROmorphone 2 MG TAB PO PRN (12:30)
[2022-02-04 12:33] VITALS: BP_SYST 121
[2022-02-04 16:24] VITALS: BP_SYST 124
[2022-02-04] MEDS: INSULIN NPH/REGULAR 70-30, 100 UNITS/ML, 10 ML VIAL SQ SCH (17:02)
[2022-02-04 20:30] VITALS: BP_SYST 137
[2022-02-04] MEDS: ATORVASTATIN 20 MG TABLET PO SCH (20:49)
[2022-02-04] MEDS: traZODone HCL 50 MG TABLET (DESYREL) PO SCH (20:49)
[2022-02-04] MEDS: DONEPEZIL HCL 5 MG TABLET (ARICEPT) PO SCH (20:49)
[2022-02-04] MEDS: FLUTICASONE PROPIONATE 50 mCg/SPRAY 16 GM NS SCH (21:01)
[2022-02-05 00:14] VITALS: BP_SYST 129
[2022-02-05] MEDS: LORazepam 1 MG TABLET PO PRN ×2 (01:11→09:22)
[2022-02-05] MEDS: HYDROmorphone 2 MG/ML VIAL IVP PRN ×4 (01:13→12:50)
[2022-02-05] MEDS: INSULIN REGULAR, HUMAN 100 UNITS/ML, 10 ML VIAL (humuLIN R) SUBCUT PRN ×3 (01:23→11:34)
[2022-02-05] MEDS: PHENYTOIN 100 MG CAPSULE PO SCH (05:46)
[2022-02-05] MEDS: PIPERACILLIN/TAZO 3.375/DEX-IS 50 ML IV SCH (05:46)
[2022-02-05] MEDS: LEVOTHYROXINE SODIUM 0.125 MG TABLET PO SCH (06:03)
[2022-02-05 07:06] VITALS: BP_SYST 135
[2022-02-05 08:10] VITALS: BP_SYST 157
[2022-02-05] MEDS: CLOPIDOGREL BISULFATE 75 MG TABLET PO SCH (08:58)
[2022-02-05] MEDS: DICYCLOMINE HCL 10 MG CAPSULE PO SCH ×2 (08:58→12:52)
[2022-02-05] MEDS: CYCLOBENZAPRINE HCL 10 MG TABLET (FLEXERIL) PO SCH (08:58)
[2022-02-05] MEDS: FLUoxetine HCL 20 MG CAPSULE (PROzac) PO SCH (08:58)
[2022-02-05] MEDS: ASPIRIN 325 MG TABLET (ECOTRIN) PO SCH (08:58)
[2022-02-05] MEDS: ALLOPURINOL 300 MG TABLET (ZYLOPRIM) PO SCH (08:59)
[2022-02-05] MEDS: LISINOPRIL 10 MG TABLET (PRINIVIL) PO SCH (08:59)
[2022-02-05] MEDS: PREGABALIN 75 MG CAPSULE (LYRICA) PO SCH (08:59)
[2022-02-05] MEDS: CILOSTAZOL 50 MG TABLET (PLETAL) PO SCH (08:59)
[2022-02-05] MEDS: FLUTICASONE PROPIONATE 50 mCg/SPRAY 16 GM NS SCH (09:00)
[2022-02-05] MEDS: DOCUSATE SODIUM 100 MG CAPSULE PO SCH (09:00)
[2022-02-05] MEDS: ACETAMINOPHEN 325 MG TABLET PO PRN (09:07)
[2022-02-05 13:01] VITALS: BP_SYST 124
[2022-02-05] MEDS ORDERED: HYDROmorphone 2 MG/ML VIAL IVP ONE (13:30)
[2022-02-09] MEDS ORDERED: cloNIDine HCL 0.1 MG/24 HR PATCH.TDWK TD SCH (09:00)
== END 2022-02-05 13:50 | DRG 603 ==
LOC: SED 18:14 → SMU 21:27
PROVIDERS: ADMIT Internal Medicine; ATTEND Internal Medicine
DX: L03.116 Cellulitis of left lower limb (principal); Z68.41 Body mass index [BMI] 40.0-44.9, adult; L03.115 Cellulitis of right lower limb; E03.9 Hypothyroidism, unspecified; E11.621 Type 2 diabetes mellitus with foot ulcer; E66.9 Obesity, unspecified; F43.10 Post-traumatic stress disorder, unspecified; G40.909 Epilepsy, unspecified, not intractable, without status epilepticus; G89.4 Chronic pain syndrome; I10 Essential (primary) hypertension; I87.8 Other specified disorders of veins; J45.909 Unspecified asthma, uncomplicated; L97.519 Non-pressure chronic ulcer of other part of right foot with unspecified severity; L97.529 Non-pressure chronic ulcer of other part of left foot with unspecified severity; F32.A Depression, unspecified; Z20.822 Contact with and (suspected) exposure to COVID-19; Z88.2 Allergy status to sulfonamides; Z88.8 Allergy status to other drugs, medicaments and biological substances; Z91.040 Latex allergy status; Z91.013 Allergy to seafood; Z88.0 Allergy status to penicillin; Z79.82 Long term (current) use of aspirin; Z79.4 Long term (current) use of insulin; Z79.899 Other long term (current) drug therapy
CPT/HCPCS: 36415; 80053; 82962; 83605; 85025; 85610-TC; 85730-TC; 87040; 87081; 96372; 96374; 99285; J1170; J1200; J1815; J2270; J2405; J2543; Q0162